=== PATIENT | female | born 1995 | race African-American/Black ===

== ENCOUNTER 2016-05-02 12:54 | Emergency (ER) | payer MEDICAID ==
--- NOTE | 2016-05-02 16:05 | ER Document Report ---
ED General - General Chief Complaint: Cough Stated Complaint: COUGH/CHEST PAIN/HARD TO BREATHE Mode of Arrival: Ambulatory Information source: Patient Notes: 21 y/o F presents to ED c/o sore throat, cough, congestion, and runny nose since yesterday evening. Denies fever, chest pain, sob, hemoptysis, n/v, difficulty breathing or swallowing. LMP onset yesterday. TRAVEL OUTSIDE OF THE [place] IN LAST 30 DAYS: No - HPI Onset: Yesterday Onset/Duration: Persistent Quality of pain: Achy Severity: Mild Associated symptoms: Nonproductive cough, Rhinnorhea, Sore throat Similar symptoms previously: Yes Recently seen / treated by doctor: No - Related Data Allergies/Adverse Reactions: No Known Allergies Allergy (Verified 05/02/16 13:26) Past Medical History - General Information source: Patient - Social History Smoking Status: Current Every Day Smoker Chew tobacco use (# tins/day): No Frequency of alcohol use: None Drug Abuse: None Lives with: Family Family History: Reviewed & Not Pertinent Patient has suicidal ideation: No Patient has homicidal ideation: No - Medical History Medical History: Negative Renal/ Medical History: Denies: Hx Peritoneal Dialysis Surgical Hx: Negative - Immunizations Hx Diphtheria, Pertussis, Tetanus Vaccination: Yes - Pt declines Review of Systems - Review of Systems Constitutional: No symptoms reported EENT: See HPI Cardiovascular: No symptoms reported Respiratory: See HPI Gastrointestinal: No symptoms reported Genitourinary: No symptoms reported Female Genitourinary: No symptoms reported Musculoskeletal: No symptoms reported Skin: No symptoms reported Hematologic/Lymphatic: No symptoms reported Neurological/Psychological: No symptoms reported -: Yes All other systems reviewed and negative Physical Exam - Vital signs Vitals: Temp Pulse Resp BP Pulse Ox 98.3 F 88 16 123/77 98 05/02/16 13:23 05/02/16 13:23 05/02/16 13:23 05/02/16 13:23 05/02/16 13:23 Interpretation: Normal - General General appearance: Appears well, Alert In distress: None - HEENT Head: Normocephalic, Atraumatic Eyes: Normal Pupils: PERRL Ears: Normal External canal: Normal Tympanic membrane: Normal. No: Hemotympanum, Injected, Perforation, Purulent effusion, Serous effusion Sinus: Normal. No: Tenderness Nasal: Clear rhinorrhea. No: Bloody discharge, Epistaxis, Purulent discharge Mouth/Lips: Normal Mucous membranes: Normal, Moist Pharynx: Erythema. No: Normal, Blood in hypopharynx, Exudate, Peritonsillar abscess, Post nasal drainage, Retropharyngeal abscess, Tonsillar hypertrophy, Uvular edema, Potential airway comprom., Other Neck: Normal. No: Anterior cervical chain, Posterior cervical chain, Lymphadenopathy, Meningismus, Subcutaneous emphysema - Respiratory Respiratory status: No respiratory distress. No: Labored, Retractions, Tachypnea Chest status: Nontender Breath sounds: Normal - CTAB, Nonproductive cough Chest palpation: Normal - Cardiovascular Rhythm: Regular Heart sounds: Normal auscultation Murmur: No Pulses: Normal: Radial Normal capillary refill: Yes - Abdominal Inspection: Normal Distension: No distension Bowel sounds: Normal Tenderness: Nontender Organomegaly: No organomegaly - Back Back: Normal, Nontender - Extremities General upper extremity: Normal inspection, Nontender, Normal color, Normal ROM , Normal temperature General lower extremity: Normal inspection, Nontender, Normal color, Normal ROM , Normal temperature, Normal weight bearing - Neurological Neuro grossly intact: Yes Cognition: Normal Orientation: AAOx4 [place] Coma Scale Eye Opening: Spontaneous [place] Coma Scale Verbal: Oriented [place] Coma Scale Motor: Obeys Commands [place] Coma Scale Total: 15 Speech: Normal Motor strength normal: LUE, RUE, LLE, RLE Sensory: Normal - Psychological Associated symptoms: Normal affect, Normal mood - Skin Skin Temperature: Warm Skin Moisture: Dry Skin Color: Normal Course - Re-evaluation Re-evalutation: 05/02/16 16:04 Patient hemodynamically stable, in no distress, afebrile, and appears well- hydrated. Tolerating oral fluids without difficulty or vomiting. Rapid strep negative, throat culture obtained. Influenza A/B screen negative. Patient presentation and physical exam findings suggestive of uncomplicated right clear viral URI at this time. She appears stable for discharge and agrees with home care, follow-up with pcp, and ED return precautions. - Vital Signs Vital signs: Temp Pulse Resp BP Pulse Ox 98.3 F 88 16 123/77 98 05/02/16 13:23 05/02/16 13:23 05/02/16 13:23 05/02/16 13:23 05/02/16 13:23 Discharge - Discharge Clinical Impression: URI (upper respiratory infection) Qualifiers: URI type: unspecified URI Qualified Code(s): J06.9 - Acute upper respiratory infection, unspecified Condition: Stable Disposition: HOME, SELF-CARE Additional Instructions: UPPER RESPIRATORY ILLNESS: You have a viral infection of the respiratory passages -- a "cold." This common infection causes nasal congestion, drainage, and often sore throat and cough. It is highly contagious. The disease usually lasts about 10 to 14 days. There is no "cure" for the viral infection -- it must run its course. If there is a complication, such as bacterial infection in the nose, sinuses, middle ear, or bronchial tubes, antibiotics may be required. The antibiotics won't affect the virus. Drink plenty of fluids. A humidifier may help. An expectorant medication or decongestant may make you more comfortable. Use acetaminophen or ibuprofen for fever or aches. See the doctor if fever persists over two days, if there is any significant worsening of your symptoms, or if you simply fail to improve as expected. DECONGESTANT MEDICATION: A decongestant medicine has been prescribed. Often this medicine is combined in the same tablet with an antihistamine or expectorant. This type of medicine is helpful in treating a bad cold or sinus condition, as well as in treatment of the nasal congestion of hay fever. It is not of much benefit for lung infections. Decongestant medicines are related to stimulants. They can cause an increase in blood pressure and heart rate. Persons with heart disease and high blood pressure should not take decongestants without discussing this with the physician. If you develop palpitations, chest pain, headache, or tremors, stop the medicine and consult your physician. COUGH-SUPPRESSANT & EXPECTORANT MEDICATION: You are to use a cough medication as needed for relief of symptoms. This medicine is a combination of an expectorant (to make the mucous thinner and more easily "coughed up") and a cough suppressant (to reduce the frequency of coughing). The cough-suppressant medicine is related to narcotics. You may experience mild nausea and sleepiness. Some patients who are very sensitive to narcotics may have stomach pain from this medicine. Taking the medicine with food reduces these side effects. Do not drive or work with machinery until you know how this medicine affects you. The expectorant should have no side effects. Iodine-containing expectorants (such as organidin) should not be taken by persons with active thyroid disease unless approved by your doctor. Call the doctor if you develop shortness of breath, hives, rash, itching, lightheadedness, or severe nausea and vomiting. USE OF ACETAMINOPHEN (Tylenol): Acetaminophen may be taken for pain relief or fever control. It's much safer than aspirin, offering a wider range of "safe" dosages. It is safe during . Some brand names are Tylenol, Panadol, Datril, Anacin 3, Tempra, and Liquiprin. Acetaminophen can be repeated every four hours. The following are maximum recommended dosages: >89 pounds or adults 650 mg to 900 mg Acetaminophen can be repeated every four hours. Maximum dose not to exceed 4000 mg a day. Use of Ghqm-Hly-Zbnxeiv Ibuprofen Ibuprofen (Advil, Nuprin, Medipren, Motrin IB) is an excellent, safe drug for fever and pain control. In addition, it has anti- inflammatory effects which may be beneficial, especially in the treatment of injuries. It's best to take ibuprofen with food. Persons with ulcer disease or allergy to aspirin should notify their physician of this before taking ibuprofen. Ibuprofen can be given every four to six hours, for a total of four doses daily. Age Pain or fever dose Antiinflammatory dose 6-8 yr 200 mg (1 tab) 200 mg (1 tab) 9-11 yr 200 mg (1 tab) 200-400 mg (1-2 tab) 11-14 yr 200-400 mg (1-2 tab) 400 mg (2 tab) 15-adult 400 mg (2 tab) 600 mg (3 tab) SMOKING: If you smoke, you should stop smoking. The tar and chemicals in cigarette smoke are harmful. Smoking has been shown to cause: emphysema chronic bronchitis lung cancer mouth and throat cancer stomach and pancreas cancer premature aging defects In addition, smoking increases ear and lung infections in children of smokers. Home self care: -Rest, hydration (6-10 glasses/day) -Steamy shower -Apply warm facial packs -Nasal saline irrigation lavage -Sleep with head elevated -Avoid cigarette smoke -Use of humidifier/vaporizer -Balanced nutrition FOLLOW-UP CARE: Your strep throat and influenza screen were negative today. A throat culture has been obtained. If bacterial growth is noted that requires treatment with antibiotics, you will be contacted within 2 days with instructions on treatment. If you do not receive a call, please call back for results. Drink plenty of fluids, at least 2 liters of water per day. Follow-up with your primary care provider this week. Return to the Emergency Department for any worsening symptoms or concerns. Prescriptions: Phenol/Sodium Phenolate [Chloraseptic Sore Throat [place] 177 ml] 2 sprays MM Q4HP PRN #1 bottle PRN Reason: Guaifenesin/Dm/Pseudoephedrine [Guai 800/Pse 60/Dm 30 Tablet] 1 tab PO Q12HP PRN #6 tab.sr.12h PRN Reason: Forms: Treatment of Relative/Child Referrals: PRASHANT ABARCA MD [Primary Care Provider] - Follow up as needed
[2016-05-02 16:19] VITALS: BP 106/69
== END 2016-05-02 15:30 | disposition home or self-care (01) ==
LOC: ER 12:54
DX: J06.9 Acute upper respiratory infection, unspecified (principal); J02.9 Acute pharyngitis, unspecified; R05 Cough; J34.89 Other specified disorders of nose and nasal sinuses; F17.200 Nicotine dependence, unspecified, uncomplicated
CPT/HCPCS: 87070; 87077; 87804; 87880; 99283

== ENCOUNTER 2016-07-29 23:49 | Emergency (ER) | payer MEDICAID ==
[2016-07-30 01:47] LABS: APPEARANCE,URINE SLIGHTLY-CLOUDY; BILIRUBIN,URINE NEGATIVE (NEGATIVE); GLUCOSE, URINE NEGATIVE (NEGATIVE); KETONES,URINE NEGATIVE (NEGATIVE); LEUKOCYTE ESTERASE,URINE SMALL (NEGATIVE); NITRITE,URINE NEGATIVE (NEGATIVE); PROTEIN,URINE 30 mg/dL (NEGATIVE); UROBILINOGEN,URINE NEGATIVE mg/dL (<2.0)
[2016-07-30] MEDS ORDERED: KETOROLAC TROMETHAMINE 60 MG/2 ML SDV IM ONE (02:22)
[2016-07-30] MEDS ORDERED: CEPHALEXIN 500 MG CAPSULE PO ONE (02:22)
--- NOTE | 2016-07-30 02:27 | ER Document Report ---
ED General - General Chief Complaint: Abdominal Pain Stated Complaint: ABDOMINAL PAIN Notes: Patient is a pleasant 21-year-old female who presents for complaints of lower abdominal pain that radiates some to her back. She points the suprapubic region. No dysuria. No abnormal vaginal discharge. She had a vaginal delivery of an a months ago. Some months ago she was depression. She never followed back up for repeat upper shots. She says that she's had almost daily vaginal spotting since receiving depression. She's not had a normal period as of yet. Her pain started yesterday. No fevers. No vomiting. No diarrhea. Last bowel movement was yesterday and was normal. Patient is sexually monogamous and denies concerns for sexually transmitted diseases. TRAVEL OUTSIDE OF THE [place] IN LAST 30 DAYS: No - Related Data Allergies/Adverse Reactions: No Known Allergies Allergy (Verified 05/02/16 13:26) Past Medical History - Social History Smoking Status: Never Smoker Frequency of alcohol use: None Drug Abuse: None Family History: Reviewed & Not Pertinent Patient has suicidal ideation: No Patient has homicidal ideation: No Renal/ Medical History: Denies: Hx Peritoneal Dialysis - Immunizations Hx Diphtheria, Pertussis, Tetanus Vaccination: Yes - Pt declines Review of Systems - Review of Systems Notes: My Normal Review Basic REVIEW OF SYSTEMS: CONSTITUTIONAL : Denies fever, chills, or sweats. Denies recent illness. RESPIRATORY: Denies cough, cold, or chest congestion. Denies shortness of breath, difficulty breathing, or wheezing. GASTROINTESTINAL: Lower abdominal pain. Denies nausea, vomiting, or diarrhea. Denies constipation. Last BM: Yesterday GENITOURINARY: Denies difficulty urinating, painful urination, burning, frequency, or blood in urine. FEMALE GENITOURINARY: Denies vaginal bleeding, abnormal or irregular periods. LMP: Irregular MUSCULOSKELETAL: Some pain to the back. SKIN: Denies rash or skin lesions.s. NEUROLOGICAL: Denies altered mental status or loss of consciousness. Denies headache. Denies weakness or paralysis or loss of use of either side. Denies problems with gait or speech. Denies sensory or motor loss. ALL OTHER SYSTEMS REVIEWED AND NEGATIVE. Physical Exam - Vital signs Vitals: Temp Pulse Resp BP Pulse Ox 98.8 F 79 18 118/68 99 07/30/16 00:04 07/30/16 00:04 07/30/16 00:04 07/30/16 00:04 07/30/16 00:04 - Notes Notes: General Appearance: Well nourished, alert, cooperative, no acute distress, no obvious discomfort. Vitals: reviewed, See vital signs table. Head: no swelling or tenderness to the head Eyes: PERRL, EOMI, Conjuctiva clear Mouth: No decreasd moisture Lungs: No wheezing, No rales, No rhonci, No accessory muscle use, good air exchange bilaterally. Heart: Normal rate, Regular rythm, No murmur, no rub Abdomen: Normal BS, soft, No rigidity, mild lower abdominal tenderness to palpation that is mainly over the suprapubic region., No guarding, no rebound, no abdominal masses, no organomegaly Extremities: strength 5/5 in all extremities, good pulses in all extremities, no swelling or tenderness in the extremities, no edema. Skin: warm, dry, appropriate color, no rash Neuro: speech clear, oriented x 3, normal affect, responds appropriately to questions. Course - Vital Signs Vital signs: Temp Pulse Resp BP Pulse Ox 98.8 F 79 18 118/68 99 07/30/16 00:04 07/30/16 00:04 07/30/16 00:04 07/30/16 00:04 07/30/16 00:04 - Laboratory Laboratory results interpreted by me: 07/30/16 00:41 Urine Protein 30 H Urine Blood MODERATE H Ur Leukocyte Esterase SMALL H - Transfer of Care Notes: 07/30/16 02:30 Patient's urinalysis that showed large amount of white blood cells. This is concerning for possible UTI. She denies any concerns for sexually transmitted diseases. She's had no abnormal vaginal discharge. Her pain may be related to urinary tract infection. I informed her pain could also be a sign of an upcoming menstrual period being that she is not really had initial period and she received the Depo shot proximal to 7 months ago. I informed her that if her symptoms are not improving in 3 days she's return to ER should reevaluate her. I encourage return to ER immediately she has heavy bleeding, worsening pain, or fevers. Patient agrees with plan will be discharged home. Dictation of this chart was performed using voice recognition software; therefore, there may be some unintended grammatical errors. Discharge - Discharge Clinical Impression: Abdominal pain Qualifiers: Abdominal location: lower abdomen, unspecified Qualified Code(s): R10.30 - Lower abdominal pain, unspecified UTI (urinary tract infection) Qualifiers: Urinary tract infection type: site unspecified Hematuria presence: without hematuria Qualified Code(s): N39.0 - Urinary tract infection, site not specified Condition: Good Disposition: HOME, SELF-CARE Additional Instructions: Your urinalysis shows a large amount of white blood cells. Typically this will indicate a urinary tract infection which may be causing your symptoms. We will place you on antibiotics. Please take Motrin at home for pain. If your symptoms are not improving in 3 days you should return to the ER or follow up with her doctor for reevaluation. Please return to the ER immediately if you have fevers, worsening pain, or feel unwell. Some of your pain could also be an indication of the upcoming heavy menstrual. Being that you've had irregular periods since receiving the tip of shot one month after . If you do get heavy bleeding and feel lightheaded please return to ER immediately. Prescriptions: Cephalexin Monohydrate [Keflex 500 mg Capsule] 500 mg PO BID #14 capsule Forms: Return to Work
[2016-07-30] MEDS ORDERED: KETOROLAC TROMETHAMINE 10 MG TABLET PO ONE (02:47)
[2016-07-30] MEDS ORDERED: KETOROLAC TROMETHAMINE 10 MG TABLET ONE (03:11)
[2016-07-30 03:20] VITALS: BP 115/63
== END 2016-07-30 03:17 | disposition home or self-care (01) ==
LOC: ER 23:49
DX: N39.0 Urinary tract infection, site not specified (principal); R10.30 Lower abdominal pain, unspecified
CPT/HCPCS: 81001; 81025; 99284; J3490

== ENCOUNTER 2016-10-05 10:25 | Emergency (ER) | payer SELFPAY ==
[2016-10-05] MEDS ORDERED: KETOROLAC TROMETHAMINE 60 MG/2 ML SDV IM ONE (12:41)
[2016-10-05 13:03] LABS: APPEARANCE,URINE SLIGHTLY-CLOUDY; BILIRUBIN,URINE NEGATIVE (NEGATIVE); GLUCOSE, URINE NEGATIVE (NEGATIVE); KETONES,URINE NEGATIVE (NEGATIVE); LEUKOCYTE ESTERASE,URINE SMALL (NEGATIVE); NITRITE,URINE NEGATIVE (NEGATIVE); PROTEIN,URINE NEGATIVE (NEGATIVE); URINE SPECIFIC GRAVITY 1.016; UROBILINOGEN,URINE NEGATIVE mg/dL (<2.0)
[2016-10-05] MEDS ORDERED: SULFAMETHOXAZOLE/TRIMETHOPRIM 800-160 MG TABLET PO ONE (13:51)
--- NOTE | 2016-10-05 13:54 | ER Document Report ---
ED General - General Chief Complaint: Low Back Pain Stated Complaint: BACK/ABDOMINAL PAIN Time Seen by Provider: 10/05/16 12:11 TRAVEL OUTSIDE OF THE [place] IN LAST 30 DAYS: No - HPI Patient complains to provider of: Back pain flank pain right Notes: Patient coming in for evaluation of back pain right flank pain started earlier this morning. Patient states last meal was chicken negative; patient states no nausea vomiting or diarrhea. Patient states flank pain on the right side. Patient also states lower abdominal pain. Denies any dysuria. Denies fevers chills nausea vomiting. - Related Data Allergies/Adverse Reactions: No Known Allergies Allergy (Verified 10/05/16 10:58) Past Medical History - Social History Smoking Status: Current Every Day Smoker Chew tobacco use (# tins/day): No Frequency of alcohol use: None Drug Abuse: None Family History: Reviewed & Not Pertinent Patient has suicidal ideation: No Patient has homicidal ideation: No Renal/ Medical History: Denies: Hx Peritoneal Dialysis Past Surgical History: Reports: Hx Gynecologic Surgery - 2 D/C - Immunizations Hx Diphtheria, Pertussis, Tetanus Vaccination: Yes - Pt declines Review of Systems - Review of Systems Constitutional: No symptoms reported EENT: No symptoms reported Cardiovascular: No symptoms reported Respiratory: No symptoms reported Gastrointestinal: Abdominal pain Genitourinary: No symptoms reported Female Genitourinary: No symptoms reported Musculoskeletal: No symptoms reported Skin: No symptoms reported Hematologic/Lymphatic: No symptoms reported Neurological/Psychological: No symptoms reported -: Yes All other systems reviewed and negative Physical Exam - Vital signs Vitals: Temp Pulse Resp BP Pulse Ox 98.7 F 84 20 108/56 L 99 10/05/16 11:01 10/05/16 11:01 10/05/16 11:01 10/05/16 11:01 10/05/16 11:01 Interpretation: Normal - General General appearance: Appears well, Alert - HEENT Head: Normocephalic, Atraumatic Eyes: Normal Pupils: PERRL - Respiratory Respiratory status: No respiratory distress Chest status: Nontender Breath sounds: Normal Chest palpation: Normal - Cardiovascular Rhythm: Regular Heart sounds: Normal auscultation Murmur: No - Abdominal Inspection: Normal Distension: No distension Bowel sounds: Normal Tenderness: Tender - Diffuse nonspecific tenderness with no rebound or guarding Organomegaly: No organomegaly - Back Back: Normal, Nontender - Extremities General upper extremity: Normal inspection, Nontender, Normal color, Normal ROM , Normal temperature General lower extremity: Normal inspection, Nontender, Normal color, Normal ROM , Normal temperature, Normal weight bearing. No: Davon's sign - Neurological Neuro grossly intact: Yes Cognition: Normal Orientation: AAOx4 [place] Coma Scale Eye Opening: Spontaneous [place] Coma Scale Verbal: Oriented [place] Coma Scale Motor: Obeys Commands [place] Coma Scale Total: 15 Speech: Normal Motor strength normal: LUE, RUE, LLE, RLE Sensory: Normal - Psychological Associated symptoms: Normal affect, Normal mood - Skin Skin Temperature: Warm Skin Moisture: Dry Skin Color: Normal Course - Re-evaluation Re-evalutation: 10/06/16 07:14 Patient urinalysis does show signs of possible infection. Due to the patient's plan pain concern about may be early Prilosec. Other patient truly does not present with symptoms such as fever nausea vomiting. Patient will be started on Bactrim discharged home - Vital Signs Vital signs: Temp Pulse Resp BP Pulse Ox 98.3 F 84 16 110/63 100 10/05/16 14:01 10/05/16 14:01 10/05/16 14:01 10/05/16 14:01 10/05/16 14:01 - Laboratory Laboratory results interpreted by me: 10/05/16 12:42 Urine Blood SMALL H Ur Leukocyte Esterase SMALL H Discharge - Discharge Clinical Impression: UTI (urinary tract infection) Qualifiers: Urinary tract infection type: site unspecified Hematuria presence: without hematuria Qualified Code(s): N39.0 - Urinary tract infection, site not specified Condition: Good Disposition: HOME, SELF-CARE Instructions: Urinary Tract Infection ([facility]), Trimethoprim-Sulfa ([facility]) Additional Instructions: Your urinalysis today shows signs of infection. This infection may be going to your kidneys causing pain. Recommend to take the antibiotic as prescribed please take all the antibiotic. He may also take Tylenol and Motrin for your pain. For severe pain may take the Ultram prescribed. Return to ER symptoms worsen Prescriptions: Sulfamethoxazole/Trimethoprim [Bactrim Ds Tablet] 1 each PO BID #14 tablet Tramadol HCl [Ultram 50 mg Tablet] 50 mg PO ASDIR PRN #14 tablet PRN Reason: Referrals: PRASHANT ABARCA MD [Primary Care Provider] - Follow up as needed
[2016-10-05 14:01] VITALS: BP 110/63
== END 2016-10-05 14:01 | disposition home or self-care (01) ==
LOC: ER 10:25
DX: N39.0 Urinary tract infection, site not specified (principal); F17.200 Nicotine dependence, unspecified, uncomplicated
CPT/HCPCS: 99283; 96372; 81025; 81001; J1885

== ENCOUNTER 2017-02-10 20:47 | Emergency (ER) | payer MEDICAID ==
[2017-02-10 21:13] VITALS: BP 116/68
--- NOTE | 2017-02-10 22:12 | ER Document Report ---
ED General - General Chief Complaint: Head Injury without LOC Stated Complaint: HEAD PAIN Time Seen by Provider: 02/10/17 22:03 Mode of Arrival: Ambulatory Information source: Patient Notes: 21-year-old female presents with complaints of head injury. Patient notes that she tripped and fell down 2 steps and stairs and struck her head on the pavement. She denies LOC, denies any neurological deficits. Patient denies any confusion. Significant other in the room notes patient is acting appropriately Patient has no blood in the use denies taking any medications TRAVEL OUTSIDE OF THE [place] IN LAST 30 DAYS: No - HPI Onset: This afternoon Onset/Duration: Sudden Quality of pain: Achy Severity: Mild Pain Level: 1 Associated symptoms: Headache Exacerbated by: Denies Relieved by: Denies Similar symptoms previously: No Recently seen / treated by doctor: No - Related Data Allergies/Adverse Reactions: No Known Allergies Allergy (Verified 10/05/16 10:58) Past Medical History - Social History Smoking Status: Never Smoker Cigarette use (# per day): No Chew tobacco use (# tins/day): No Smoking Education Provided: No Family History: Reviewed & Not Pertinent Patient has suicidal ideation: No Patient has homicidal ideation: No Renal/ Medical History: Denies: Hx Peritoneal Dialysis Past Surgical History: Reports: Hx Gynecologic Surgery - 2 D/C - Immunizations Hx Diphtheria, Pertussis, Tetanus Vaccination: Yes - Pt declines Review of Systems - Review of Systems Notes: REVIEW OF SYSTEMS: CONSTITUTIONAL : Denies fever, chills, or sweats. Denies recent illness. EENT: Denies eye, ear, throat, or mouth pain or symptoms. Denies nasal or sinus congestion or discharge. Denies throat, tongue, or mouth swelling or difficulty swallowing. CARDIOVASCULAR: Denies chest pain. Denies palpitations or racing or irregular heart beat. Denies ankle edema. RESPIRATORY: Denies cough, cold, or chest congestion. Denies shortness of breath, difficulty breathing, or wheezing. GASTROINTESTINAL: Denies abdominal pain or distention. Denies nausea, vomiting , or diarrhea. Denies blood in vomitus, stools, or per rectum. Denies black, tarry stools. Denies constipation. GENITOURINARY: Denies difficulty urinating, painful urination, burning, frequency, blood in urine, or discharge. FEMALE GENITOURINARY: Denies vaginal bleeding, heavy or abnormal periods, irregular periods. Denies vaginal discharge or odor. MUSCULOSKELETAL: Denies back or neck pain or stiffness. Denies joint pain or swelling. SKIN: Denies rash, lesions or sores. HEMATOLOGIC : Denies easy bruising or bleeding. LYMPHATIC: Denies swollen, enlarged glands. NEUROLOGICAL: Admits to headache PSYCHIATRIC: Denies anxiety or stress. Denies depression, suicidal ideation, or homicidal ideation. ALL OTHER SYSTEMS REVIEWED AND NEGATIVE. PHYSICAL EXAMINATION: GENERAL: Well-appearing, well-nourished and in no acute distress. HEAD: Atraumatic, normocephalic. EYES: Pupils equal round and reactive to light, extraocular movements intact, conjunctiva are normal. ENT: Nares patent, oropharynx clear without exudates. Moist mucous membranes. NECK: Normal range of motion, supple without lymphadenopathy LUNGS: Breath sounds clear to auscultation bilaterally and equal. No wheezes rales or rhonchi. HEART: Regular rate and rhythm without murmurs ABDOMEN: Soft, nontender, nondistended abdomen. No guarding, no rebound. No masses appreciated. Female : deferred Musculoskeletal: Normal range of motion, no pitting or edema. No cyanosis. NEUROLOGICAL: Cranial nerves grossly intact. Normal speech, normal gait. Normal sensory, motor exams PSYCH: Normal mood, normal affect. SKIN: Abrasions of the right temporal region no hematoma Dictation was performed using [employer] voice recognition software Physical Exam - Vital signs Vitals: Temp Pulse Resp BP Pulse Ox 98.3 F 75 18 116/68 100 02/10/17 21:08 02/10/17 21:08 02/10/17 21:08 02/10/17 21:08 02/10/17 21:08 Course - Re-evaluation Re-evalutation: 02/10/17 22:18 Neurological examination was performed no acute abnormality was noted, patient was offered a CT of the head and I discussed risks and benefits and she wishes to defer at this time. I believe this is appropriate given that she has no loss consciousness has not been vomiting and is not on any blood thinners. Very strict return precautions have been provided to the patient Patient has no neck pain After performing a Medical Screening Examination, I estimate there is LOW risk for ACUTE GLAUCOMA, TEMPORAL ARTERITIS, MENINGITIS, INCRANIAL HEMORRHAGE, or ISCHEMIC STROKE thus I consider the discharge disposition reasonable. I have reevaluated this patient multiple times and no significant life threatening changes are noted. The patient and I have discussed the diagnosis and risks, and we agree with discharging home with close follow-up with the understanding that symptoms and presentations can change. We also discussed returning to the Emergency Department immediately if new or worsening symptoms occur. We have discussed the symptoms which are most concerning (e.g., changing or worsening symptoms, new numbness or weakness, vomiting, fever) that necessitate immediate return. - Vital Signs Vital signs: Temp Pulse Resp BP Pulse Ox 98.3 F 75 18 116/68 100 02/10/17 21:08 02/10/17 21:08 02/10/17 21:08 02/10/17 21:08 02/10/17 21:08 Discharge - Discharge Clinical Impression: Head injury Qualifiers: Encounter type: initial encounter Qualified Code(s): S09.90XA - Unspecified injury of head, initial encounter Condition: Stable Disposition: HOME, SELF-CARE Instructions: Concussion ([facility]), Contusion ([facility]) Additional Instructions: Follow up with your physician tomorrow for further care or return to the ED IMMEDIATELY if symptoms worsen or new concerns occur. If you cannot afford to follow up with your primary care physician a list of low cost clinics have been provided at the end of your discharge papers as well.
[2017-02-10] MEDS ORDERED: ACETAMINOPHEN 325 MG TABLET PO ONE (22:14)
== END 2017-02-10 22:20 | disposition home or self-care (01) ==
LOC: ER 20:47
DX: S00.81XA Abrasion of other part of head, initial encounter (principal); R51 Headache; W10.9XXA Fall (on) (from) unspecified stairs and steps, initial encounter
CPT/HCPCS: 99283; J3490

== ENCOUNTER → 2017-07-25 | Outpatient (CLI) | payer SELFPAY ==
--- NOTE | 2017-07-25 16:15 | RADIOLOGY REPORT (SQ) ---
EXAM DESCRIPTION: U/S OB 14+ TRNABD 1GES W/O DOP COMPLETED DATE/TIME: 07/25/2017 3:29 pm REASON FOR STUDY: ENCTR FOR SUPERVISION OF OTHER NORMAL , 2ND TRIMESTER (Z34.82) Z34.82 EN COUNTER FOR SUPRVSN OF NORMAL , SECOND TRI COMPARISON: None. TECHNIQUE: Static and Dynamic grayscale imaging performed of gravid uterus using transabdominal appr oach. Additional selected color Doppler and spectral images recorded. All stored on PACS. LIMITATIONS: None. FINDINGS: EGA: 19 weeks 0 days JAZMINE: 12/19/2017 EFW: Not calculated. PERCENTILE: Not applicable. Fetus less than or equal to 20 weeks gestation. CECILIA: 13.4 PLACENTA: Anterior grade 1 PRESENTATION: Cephalic. ANATOMY: HEART RATE: 147 beats per minute. FOUR CHAMBER HEART: Visualized. THREE VESSEL CORD: Yes. CORD INSERTION: Visualized. KIDNEYS AND BLADDER: Visualized. Appear normal. STOMACH: Visualized. Appears normal. SPINE: Normal as visualized. BRAIN AND LATERAL VENTRICLES: Visualized. Appear normal. OTHER: No other significant finding. MATERNAL ADNEXA: Maternal ovaries not visualized. CERVICAL LENGTH: Not measured. OTHER: No other significant finding. IMPRESSION: LIVING INTRAUTERINE . ESTIMATED GESTATIONAL AGE 19 weeks 0 days. NO VISUALIZED ANOMALIES. Trimester of : Second trimester - 13 weeks 1 day to 27 weeks 6 days. TECHNICAL DOCUMENTATION: JOB ID: [id number] [employer]- All Rights Reserved Reading location - IP/workstation name: [email or web address]
== END ==
LOC: RAD 14:15
PROVIDERS: ATTEND Nurse Practitioner Women's Health
DX: Z34.82 Encounter for supervision of other normal pregnancy, second trimester (principal)
CPT/HCPCS: 76805

== ENCOUNTER 2017-12-10 01:08 | Outpatient (CLI) | payer SELFPAY ==
[2017-12-10 01:42] LABS: APPEARANCE,URINE SLIGHTLY-CLOUDY; BILIRUBIN,URINE NEGATIVE (NEGATIVE); COLOR,URINE YELLOW; GLUCOSE, URINE NEGATIVE (NEGATIVE); KETONES,URINE TRACE mg/dL (NEGATIVE); LEUKOCYTE ESTERASE,URINE LARGE (NEGATIVE); NITRITE,URINE NEGATIVE (NEGATIVE); PROTEIN,URINE NEGATIVE (NEGATIVE); URINE SPECIFIC GRAVITY 1.018; UROBILINOGEN,URINE NEGATIVE mg/dL (<2.0)
[2017-12-10 02:02] LABS: URINE AMPHETAMINES SCREEN NEGATIVE; URINE BARBITURATES SCREEN NEGATIVE; URINE BENZODIAZEPINES SCREEN NEGATIVE; URINE COCAINE SCREEN NEGATIVE; URINE PHENCYCLIDINE SCREEN NEGATIVE
[2017-12-10 02:07] LABS: URINE METHADONE SCREEN NEGATIVE
[2017-12-10 02:14] LABS: URINE MARIJUANA (THC) SCREEN UNCONFIRMED POSITIVE
[2017-12-10 03:58] LABS: ABSOLUTE EOSINOPHILS # (AUTO) 0.1 10^3/uL (0.0-0.6); ABSOLUTE LYMPHOCYTES (AUTO) 2.5 10^3/uL (0.5-4.7); ABSOLUTE MONOCYTES (AUTO) 0.7 10^3/uL (0.1-1.4); ABSOLUTE NEUT (AUTO) 5.4 10^3/uL (1.7-8.2); BASOPHILS % (AUTO) 0.4 % (0-2); HEMATOCRIT 29.5 % (36.0-47.0); HEMOGLOBIN 9.6 g/dL (12.0-15.5); LYMPHOCYTES % (AUTO) 28.5 % (13-45); MEAN CORPUSCULAR HEMOGLOBIN 22.8 pg (27.0-33.4); MEAN CORPUSCULAR HGB CONC 32.6 g/dL (32.0-36.0); MEAN CORPUSCULAR VOLUME 70 fl (80-97); MONOCYTES % (AUTO) 8.1 % (3-13); PLATELET COUNT 191 10^3/uL (150-450); RED BLOOD COUNT 4.22 10^6/uL (3.72-5.28); RED CELL DISTRIBUTION WIDTH 18.2 % (11.5-14.0); TOTAL CELLS COUNTED % (AUTO) 100 %; WHITE BLOOD COUNT 8.7 10^3/uL (4.0-10.5)
--- NOTE | 2017-12-10 04:43 | Non Stress Test Report ---
Non Stress Test Datetime Report Generated by CPN: 12/10/2017 04:43 DEMOGRAPHIC EGA NST: 38.5 INDICATION Indication for Study: Other Indication for Study (NST) Other: LC URINE RESULTS Urine Protein, NST: Negative Urine Ketones - NST: Positive Urine Glucose - NST: Negative Urine Blood - NST: Negative MONITORING Monitor Explained: Monitor Explained; Test Explained; Patient Verbalized Understanding Time on Monitor: 12/10/2017 01:36 Time on Monitor: 12/10/2017 01:36 Time off Monitor: 12/10/2017 04:06 NST Duration: 150 NST INTERVENTIONS NST Interventions: PO Hydration Physician Notified NST: Dr. Manning BABY A: [id number] BABY A Movement : Present Contraction Frequency : IREGG FHR Baseline : 125 Accelerations : 15X15 Decelerations : None Variability : Moderate 6-25bpm NST Review: Meets Criteria for Reactive NST NST Review and Verified By : Bárbara Silva RN NST Results: Reactive NST REPORT Report Trigger: Send Report
[2017-12-10 05:02] LABS: RUBELLA INTERPRETATION POSITIVE
[2017-12-10 06:02] LABS: CHLAM PCR DETECTED (NOT DETECT); GON PCR DETECTED (NOT DETECT)
[2017-12-11 07:38] LABS: HEPATITIS C VIRUS AB 0.1 s/co ratio (0.0-0.9)
[2017-12-11 11:27] LABS: HEPATITS B SURFACE ANTIGEN Negative (Negative)
== END 2017-12-10 04:18 | disposition home or self-care (01) ==
LOC: LC 01:08
PROVIDERS: ATTEND Obstetrics & Gynecology Gynecology
PROC: 4A1HXCZ Monitoring of Products of Conception, Cardiac Rate, External Approach (ICD-10-PCS; principal; 2017-12-10)
DX: O47.1 False labor at or after 37 completed weeks of gestation (principal); Z3A.38 38 weeks gestation of pregnancy
CPT/HCPCS: 36415; 59025; 80307; 81005; 85025; 86592; 86701; 86762; 86803; 86804; 86850; 86900; 86901; 87077; 87081; 87340; 87491; 87591

== ENCOUNTER 2017-12-11 22:45 | Inpatient (IN) | payer SELFPAY ==
[2017-12-11] MEDS ORDERED: RINGERS SOLUTION,LACTATED 1,000 ML IV PRN (22:52)
[2017-12-11] MEDS ORDERED: CEFTRIAXONE INJ 1000 MG VIAL ONE (23:00)
[2017-12-11] MEDS ORDERED: AZITHROMYCIN INJ 500 MG VIAL IV ONE (23:01)
[2017-12-11] MEDS ORDERED: PENICILLIN G-K 5 MILLION UNIT VIAL ONE (23:01)
[2017-12-11 23:04] LABS: ABSOLUTE BASOPHILS # (AUTO) 0.1 10^3/uL (0.0-0.2); ABSOLUTE EOSINOPHILS # (AUTO) 0.1 10^3/uL (0.0-0.6); ABSOLUTE LYMPHOCYTES (AUTO) 2.6 10^3/uL (0.5-4.7); ABSOLUTE MONOCYTES (AUTO) 0.8 10^3/uL (0.1-1.4); ABSOLUTE NEUT (AUTO) 6.2 10^3/uL (1.7-8.2); BASOPHILS % (AUTO) 0.5 % (0-2); EOSINOPHILS % (AUTO) 0.5 % (0-6); HEMATOCRIT 30.3 % (36.0-47.0); HEMOGLOBIN 9.8 g/dL (12.0-15.5); LYMPHOCYTES % (AUTO) 27.3 % (13-45); MEAN CORPUSCULAR HEMOGLOBIN 22.6 pg (27.0-33.4); MEAN CORPUSCULAR HGB CONC 32.4 g/dL (32.0-36.0); MEAN CORPUSCULAR VOLUME 70 fl (80-97); MONOCYTES % (AUTO) 7.8 % (3-13); PLATELET COUNT 202 10^3/uL (150-450); RED BLOOD COUNT 4.35 10^6/uL (3.72-5.28); RED CELL DISTRIBUTION WIDTH 17.7 % (11.5-14.0); SEGMENTED NEUTROPHILS % (AUTO) 63.9 % (42-78); TOTAL CELLS COUNTED % (AUTO) 100 %; WHITE BLOOD COUNT 9.7 10^3/uL (4.0-10.5)
[2017-12-11] MEDS ORDERED: LIDOCAINE 1% INJ-PF (10 MG/ML) 30 ML SDV ONE ×2 (23:08→23:22)
[2017-12-11] MEDS ORDERED: LIDOCAINE 1% INJ-PF (10 MG/ML) 30 ML SDV INJ ONE (23:15)
[2017-12-11] MEDS ORDERED: CEFTRIAXONE INJ 250 MG VIAL IM ONE (23:15)
[2017-12-11] MEDS ORDERED: AZITHROMYCIN INJ 500 MG VIAL IV PRN (23:19)
[2017-12-11] MEDS ORDERED: MISOPROSTOL 0.2 MG TABLET ONE (23:21)
[2017-12-11] MEDS ORDERED: OXYTOCIN/NORMAL SALINE 20 UNIT/1,000 ML RTUINJ ONE (23:22)
[2017-12-11] MEDS ORDERED: DEXTROSE 5% IV ONE (23:30)
[2017-12-11] MEDS ORDERED: AZITHROMYCIN IV ONE (23:30)
[2017-12-11] MEDS ORDERED: WATER IV ONE (23:30)
[2017-12-11] MEDS ORDERED: PENICILLIN G POTASSIUM 5,000,000 UNIT in DEXTROSE 5%-WATER 100 ML IV ONE (23:30)
[2017-12-11] MEDS ORDERED: PHENYLEPHRINE HCL INJ/PF 10 MG/1 ML SDV ONE (23:38)
[2017-12-11] MEDS ORDERED: FENTANYL CITRATE INJ/PF 100 MCG/2 ML AMPUL ONE (23:38)
[2017-12-11] MEDS ORDERED: EPHEDRINE SULFATE INJ 50 MG/1 ML AMPULE ONE (23:38)
[2017-12-11] MEDS ORDERED: FENTANYL/BUPIVACAINE/NS/PF 0 MCG/0 ML RTUINJ EPI ONE (23:39)
[2017-12-11 23:58] LABS: APPEARANCE,URINE SLIGHTLY-CLOUDY; BILIRUBIN,URINE NEGATIVE (NEGATIVE); COLOR,URINE YELLOW; GLUCOSE, URINE NEGATIVE (NEGATIVE); KETONES,URINE NEGATIVE (NEGATIVE); LEUKOCYTE ESTERASE,URINE SMALL (NEGATIVE); NITRITE,URINE NEGATIVE (NEGATIVE); PROTEIN,URINE NEGATIVE (NEGATIVE); URINE SPECIFIC GRAVITY 1.014; UROBILINOGEN,URINE NEGATIVE mg/dL (<2.0)
--- NOTE | 2017-12-12 00:04 | Admission Physical ---
Datetime Report Generated by CPN: 12/12/2017 00:04 CURRENT ADMISSION Chief Complaint: Uterine Contractions Indication for Induction: Not Applicable Admit Impression : Term, Intrauterine Admit Plan: Initiate Labor Protocol ALLERGIES Medication Allergies: No Medication Allergies: No Known Allergies (12/11/2017) Latex: No Latex Allergies OBSTETRICAL HISTORY EDC: 12/19/2017 00:00 : 4 Para: 3 Term: 2 : 1 Livin Gestational Diabetes: No Rh Sensitization: No Incompetent Cervix: No GEGE: No Infertility: No ART Treatment: No Uterine Anomaly: No IUGR: No Hx Previous C/S: No Macrosomia: No Hx Loss/Stillborn: No PIH: No Hx : No Placenta Previa/Abruption: No Depression/PP Depression: Yes PTL/PROM: Yes Post Hemorrhage: No Current Procedures: Ultrasound Obstetrical History Comments: G1: 2013 term G2: 2014 34 weeks NICU stay G3: 2015 term G4: current, anemia, limited records, positive for gonorrhea and chlamydia at delivery SEE RECORDS Alcohol: No Marijuana : No Cocaine: No Other Illicit Drugs: No Cigarettes: Current Everyday Smoker. [id number] Cigarette Frequency: < 5 per day Advised to Stop: Yes MEDICAL HISTORY Diabetes: No Blood Transfusion: No Pulmonary Disease (Asthma, TB): No Breast Disease: No Hypertension: No Jewelry Sales Surgery: No Heart Disease: No Hosp/Surgery: No Autoimmune Disorder: No Anesthetic Complications: No Kidney Disease: No Abnormal Pap Smear: No Neuro/Epilepsy: No Psychiatric Disorders: No Other Medical Diseases: No Hepatitis/Liver Disease: No Significant Family History: No Varicosities/Phlebitis: No Trauma/Violence : No Thyroid Dysfunction: No Medical History Comments: PPD after last baby no meds (Annotations: Data stored by [facility] on behalf of user) INFECTIOUS HISTORY Gonorrhea: Yes Genital Herpes: No Chlamydia: Yes Tuberculosis: No Syphilis: No Hepatitis: No HIV/AIDS Exposure: No Rash or Viral Illness: No HPV: No Infectious History Comments: chlamydia and gonorrhea positive 12/11/17 PHYSICAL EXAM General: Normal HEENT: Normal Neurologic: Normal Thyroid: Normal Heart: Normal Lungs: Normal Breast: Deferred Back: Normal Abdomen: Normal Genitourinary Exam: Normal Extremities: Normal DTRs: Normal Pelvic Type: Adequate FETUS A EGA: 39.0 Monitoring: External US PLANS FOR LABOR AND DELIVERY Labor and Delivery: None Pain Management: Epidural Feeding Preference: Breast Benefit of Breast Feed Discussed: Yes Circumcision: No INFORMED CONSENT Signature: with User ID: [email or web address]
[2017-12-12 00:25] LABS: URINE AMPHETAMINES SCREEN NEGATIVE; URINE BENZODIAZEPINES SCREEN NEGATIVE; URINE COCAINE SCREEN NEGATIVE; URINE METHADONE SCREEN NEGATIVE; URINE PHENCYCLIDINE SCREEN NEGATIVE
[2017-12-12 00:33] LABS: URINE BARBITURATES SCREEN NEGATIVE
[2017-12-12 00:42] LABS: URINE MARIJUANA (THC) SCREEN UNCONFIRMED POSITIVE
[2017-12-12] MEDS ORDERED: ACETAMINOPHEN WITH CODEINE #3 TABLET ONE (00:45)
[2017-12-12] MEDS ORDERED: MEASLES,MUMPS&RUBELLA VACC/PF 0.5 ML VIAL SUBCUT PRN ×2 (00:46→09:30)
[2017-12-12] MEDS ORDERED: PROMETHAZINE HCL 25 MG SUPP.RECT PR PRN (00:46)
[2017-12-12] MEDS ORDERED: GLYCERIN/WITCH HAZEL LEAF 1 EACH MED..PAD TP PRN (00:46)
[2017-12-12] MEDS ORDERED: DIPH/PERTUSS(ACELL)/TETANUS VAC/PF 0.5 ML SYR (>=10YO) IM PRN ×2 (00:46→09:30)
[2017-12-12] MEDS ORDERED: BENZOCAINE/MENTHOL AEROSOL SPRAY 56 ML TOP PRN (00:46)
[2017-12-12] MEDS ORDERED: PSEUDOEPHEDRINE HCL 30 MG TABLET PO PRN (00:46)
[2017-12-12] MEDS ORDERED: NA PHOS,M-B/NA PHOS,DI-BA (ADULT) 133 ML ENEMA PR PRN (00:46)
[2017-12-12] MEDS ORDERED: OXYTOCIN/NORMAL SALINE 20 UNIT/1,000 ML RTUINJ IV PRN (00:46)
[2017-12-12] MEDS ORDERED: DIBUCAINE 1% OINTMENT 28 GM TP PRN (00:46)
[2017-12-12] MEDS ORDERED: MAGNESIUM HYDROXIDE SUSP 30 ML UDCUP PO PRN (00:46)
[2017-12-12] MEDS ORDERED: PROMETHAZINE HCL 25 MG TABLET PO PRN (00:46)
[2017-12-12] MEDS ORDERED: ZOLPIDEM TARTRATE 5 MG TABLET PO PRN (00:46)
[2017-12-12] MEDS ORDERED: ACETAMINOPHEN 650 MG SUPP.RECT PR PRN (00:46)
[2017-12-12] MEDS ORDERED: DIPHENHYDRAMINE HCL 25 MG CAPSULE PO PRN (00:46)
[2017-12-12] MEDS ORDERED: PROMETHAZINE HCL INJ 25 MG/1 ML VIAL IV PRN ×2 (00:46→09:30)
--- NOTE | 2017-12-12 00:46 | PDOC DELIVERY SUMMARY ---
Delivery Summary - Maternal Risk Factors: No Care Ruptured Membranes: SROM Fluids: Meconium Stained - Delivery Labor: Precipitous-Less Than 3 Hours Presentation: Vertex Uterine Contraction Monitoring: External Support Person Present: Yes Nuchal Cord: Yes - Medications Type of Anesthesia:: Other
[2017-12-12] MEDS ORDERED: IBUPROFEN 800 MG TABLET ONE (01:45)
--- NOTE | 2017-12-12 02:07 | Warning Signs in Babies ---
VOD Warning Signs Datetime Report Generated by [facility]: 12/12/2017 02:07 VOD#608 -Warning Signs in Babies: Needs to be viewed. (12/10/2017 01:31:Riddhi Hinojosa RN)
--- NOTE | 2017-12-12 03:01 | Delivery Summary ---
Del Sum A-C Datetime Report Generated by CPN: 12/12/2017 03:01 DELIVERY PERSONNEL DELIVERY PERSONNEL: [id number] Delivery Doctor:: Ramon Manning MD Labor and Delivery Nurse:: Riddhi Hinojosa RN Labor and Delivery Nurse:: Geno Neff RN Nursery Nurse:: Whitney Butler RN Nursery Nurse:: Fátima Li RN Additional Personnel: : Elsy Michele RN MATERNAL INFORMATION Delivery Anesthesia: None Medications After Delivery: Pitocin Drip 20 Units/1000ml NSS Maternal Complications: Precipitous Labor (<3hrs); Other Complication Details: limited pnc, gc positive and chlamydia positive at delivery LABOR SUMMARY EDC: 12/19/2017 00:00 No. Babies in Womb: 1 Attempted: No Labor Anesthesia: None LABOR INFORMATION Reason for Induction: Not Applicable Onset of Labor: 12/11/2017 22:15 Complete Dilatation: 12/12/2017 00:13 Oxytocin: N/A Group B Beta Strep: unknown-done 12/10/17 Antibiotics # of Doses: 1 Antibiotics Time of Last Dose: 2324 Name of Antibiotic Given: Penicillin (also received Zithromax and Rocephin) Steroids Given: None Reason Steroids Not Administered: Not Applicable MEMBRANES Membranes Rupture Method: Spontaneous Rupture of Membranes: 12/12/2017 22:30 Length of Rupture (hr): -22.00 Amniotic Fluid Color: Clear Amniotic Fluid Amount: Small Amniotic Fluid Odor: Normal STAGES OF LABOR Stage 1 hr: 1 Stage 1 min: 58 Stage 2 hr: 0 Stage 2 min: 17 Stage 3 hr: 0 Stage 3 min: 3 Total Time in Labor hr: 2 Total Time in Labor min: 18 VAGINAL DELIVERY Episiotomy: None Laceration #1: None Laceration Extension #1: N/A Laceration Repair: Not Applicable Sponge Count Correct: N/A Sharps Count Correct: N/A CSECTION DELIVERY Primary Indication: N/A Secondary Indication: N/A CSection Incidence: N/A Labor: N/A Elective: N/A CSection Incision: N/A BABY A INFORMATION Delivery Date/Time: 12/12/2017 00:30 Method of Delivery: Vaginal Born in Route : No : N/A Forceps: N/A Vacuum Extraction: N/A Shoulder Dystocia : No PRESENTATION/POSITION BABY A Presentation: Cephalic Cephalic Presentation: Vertex Vertex Position: Right Occipital Anterior Breech Presentation: N/A PLACENTA INFORMATION BABY A Placenta Delivery Time : 12/12/2017 00:33 Placenta Method of Delivery: Spontaneous Placenta Status: Delivered SCORES BABY A Heart Rate 1 min: >100 bpm Resp Effort 1 min: Good Cry Reflex Irritability 1 min: Cough or Sneeze or Pulls Away Muscle Tone 1 min: Active Motion Color 1 min: Blue/Pale Resuscitation Effort 1 min: Tactile Stimulation SCORE 1 MIN: 8 Heart Rate 5 min: >100 bpm Resp Effort 5 min: Good Cry Reflex Irritability 5 min: Cough or Sneeze or Pulls Away Muscle Tone 5 min: Active Motion Color 5 min: Body [place], Extremities Blue Resuscitation Effort 5 min: Tactile Stimulation SCORE 5 MIN: 9 INFORMATION BABY A Gestational Age at Delivery: 39.0 Gestational Status: Full Term- 39- 40.6 Weeks Outcome : Liveborn Condition : Stable Sex: Male IDENTIFICATION BABY A Infant Verification Date/Time: 12/12/2017 01:18 ID Band Number: [id number] Mother's Name Verified: Yes RN Verifying : C. Gentilin, RN M. Luke, RN WEIGHT/LENGTH BABY A Birthweight (gm): 2800 Weight (lb): 6 Infant Weight (oz): 3 Length (in): 20.50 Infant Length (cm): 52.07 CORD INFORMATION BABY A No. Cord Vessels: 3 Nuchal Cord : body cord Nuchal Cord- Other: neck Cord Blood Taken: Yes-For Eval (Mom's Blood Type - or O+) Suction: Mouth; Nose ASSESSMENT BABY A Complications: Meconium Physical Findings at Delivery: [place] Spots Respirations: Appears Normal Skin to Skin: Yes Senior Cost Estimator/ALS Called : No Infant Care By: rn luke and rn amelia Transferred To: Remains with Mother BABY B INFORMATION : N/A SIGNATURES Signature: with User ID: [email or web address]
[2017-12-12] MEDS: PENICILLIN G POTASSIUM 2,500,000 UNIT in DEXTROSE 5%-WATER 50 ML IV SCH (03:17)
[2017-12-12] MEDS: ACETAMINOPHEN WITH CODEINE #3 TABLET PO PRN ×2 (04:44→19:24)
[2017-12-12] MEDS: IBUPROFEN 800 MG TABLET PO SCH ×3 (05:07→23:29)
[2017-12-12] MEDS: SENNOSIDES/DOCUSATE 8.6-50 MG 1 EACH TABLET PO SCH (10:10)
[2017-12-12] MEDS: DOCUSATE SODIUM 100 MG CAPSULE PO SCH (10:10)
[2017-12-12] MEDS: FERROUS SULFATE 325 MG TABLET PO SCH (10:10)
[2017-12-12] MEDS: PRENATAL VITAMIN W DHA CAPSULE PO SCH (10:10)
[2017-12-12] MEDS: FAMOTIDINE 20 MG TABLET PO SCH ×2 (10:10→23:29)
[2017-12-13 08:13] LABS: HEMATOCRIT 26.9 % (36.0-47.0); HEMOGLOBIN 8.7 g/dL (12.0-15.5); MEAN CORPUSCULAR HEMOGLOBIN 22.6 pg (27.0-33.4); MEAN CORPUSCULAR HGB CONC 32.2 g/dL (32.0-36.0); MEAN CORPUSCULAR VOLUME 70 fl (80-97); PLATELET COUNT 168 10^3/uL (150-450); RED BLOOD COUNT 3.84 10^6/uL (3.72-5.28); RED CELL DISTRIBUTION WIDTH 17.9 % (11.5-14.0); WHITE BLOOD COUNT 9.4 10^3/uL (4.0-10.5)
[2017-12-13] MEDS: DOCUSATE SODIUM 100 MG CAPSULE PO SCH ×3 (09:44→17:52)
[2017-12-13] MEDS: FERROUS SULFATE 325 MG TABLET PO SCH ×3 (09:44→17:52)
[2017-12-13] MEDS: IBUPROFEN 800 MG TABLET PO SCH ×3 (10:07→21:39)
[2017-12-13] MEDS: ACETAMINOPHEN WITH CODEINE #3 TABLET PO PRN ×2 (10:07→17:52)
[2017-12-13] MEDS: SENNOSIDES/DOCUSATE 8.6-50 MG 1 EACH TABLET PO SCH (10:08)
[2017-12-13] MEDS: PRENATAL VITAMIN W DHA CAPSULE PO SCH (10:08)
[2017-12-13] MEDS: FAMOTIDINE 20 MG TABLET PO SCH ×2 (10:08→21:39)
--- NOTE | 2017-12-13 12:29 | PDOC PROGRESS REPORT ---
Subjective-OB Progress Note for:: 12/13/17 Subjective: 22yo G4 now P4 s/p ppd1. Ambulating, voiding and without difficulty. Reports minimal bleeding today. Bonding well with baby. No concerns Physical Exam (OB) Vital Signs: Temp Pulse Resp BP Pulse Ox 98.0 F 60 15 112/71 97 12/13/17 08:37 12/13/17 08:37 12/13/17 08:37 12/13/17 08:37 12/13/17 08:37 Intake & Output 12/12/17 12/13/17 12/14/17 06:59 06:59 06:59 Intake Total 450 Balance 450 Weight 65.9 kg - General General Appearance: Appears well In distress: None - PIH/Pre-Eclampsia Headache: Absent Epigastric Pain: No Visual Changes: No - Episiotomy/Laceration Site Condition: N/A - Lochia Lochia Amount: Scant < 10 ml Lochia Color: Rubra/Red - Abdomen Description: Soft, Round Hernia Present: No Fundal Description: Firm, Midline Fundal Height: u/u - u/2 - Respiratory Respiratory Status: No respiratory distress - Extremities Upper extremity: Normal inspection Lower extremities: Normal inspection - Neurological Cognition: Normal Orientation: AAOx4 - Psychological Associated symptoms: Normal affect, Normal mood Objective-Diagnostic Laboratory: 12/13/17 07:30 12/13/17 07:30 WBC 9.4 RBC 3.84 Hgb 8.7 L Hct 26.9 L MCV 70 L MCH 22.6 L MCHC 32.2 RDW 17.9 H Plt Count 168 Assessment and Plan(PN) - Assessment and Plan (1) Anemia affecting in third trimester Is this a current diagnosis for this admission?: Yes Plan: Increase dietary iron and FeSO4 BID. (2) Limited care Qualifiers: Trimester: unspecified trimester Qualified Code(s): O09.30 - Supervision of with insufficient care, unspecified trimester Is this a current diagnosis for this admission?: Yes Plan: delivered, discharged landscape architect and planner consult placed (3) Chlamydia infection affecting Qualifiers: Trimester: unspecified trimester Qualified Code(s): O98.819 - Other maternal infectious and parasitic diseases complicating , unspecified trimester; A74.9 - Chlamydial infection, unspecified; A74.9 - Chlamydial infection, unspecified Is this a current diagnosis for this admission?: Yes Plan: treated on admission, will need FAITH at pp visit (4) Gonorrhea affecting Qualifiers: Trimester: unspecified trimester Qualified Code(s): O98.219 - Gonorrhea complicating , unspecified trimester Is this a current diagnosis for this admission?: Yes Plan: treated on admission, will need FAITH at PP visit (5) GBS (group B Streptococcus carrier), +RV culture, currently Is this a current diagnosis for this admission?: Yes Plan: unknown GBS status on admission, treated x1 dose. Will continue to monitor baby (6) Term delivered Is this a current diagnosis for this admission?: Yes (7) THC use in Is this a current diagnosis for this admission?: Yes Plan: landscape architect and planner, cessation encouraged. (8) History of depression Is this a current diagnosis for this admission?: Yes Plan: close follow up in . Continue to monitor for s/s of PPD, warning s/s and how to seek immediate care reviewed - Time Spent with Patient Time with patient: Less than 15 minutes Smoking Education Provided: Over 3 minutes Medications reviewed and adjusted accordingly: Yes - Disposition Anticipated Discharge: Home Within: within 24 hours
[2017-12-14] MEDS: IBUPROFEN 800 MG TABLET PO SCH (05:41)
[2017-12-14] MEDS: PENICILLIN G POTASSIUM 2,500,000 UNIT in DEXTROSE 5%-WATER 50 ML IV SCH (07:58)
[2017-12-14 09:09] VITALS: BP 113/70
[2017-12-14] MEDS: SENNOSIDES/DOCUSATE 8.6-50 MG 1 EACH TABLET PO SCH (09:52)
[2017-12-14] MEDS: FAMOTIDINE 20 MG TABLET PO SCH (09:52)
[2017-12-14] MEDS: PRENATAL VITAMIN W DHA CAPSULE PO SCH (09:52)
[2017-12-14] MEDS: DOCUSATE SODIUM 100 MG CAPSULE PO SCH (09:52)
[2017-12-14] MEDS: FERROUS SULFATE 325 MG TABLET PO SCH (09:52)
--- NOTE | 2017-12-14 10:03 | PDOC DISCHARGE SUMMARY ---
Final Diagnosis Discharge Date: 12/14/17 - Final Diagnosis (1) Anemia affecting in third trimester Is this a current diagnosis for this admission?: Yes (2) Chlamydia infection affecting Is this a current diagnosis for this admission?: Yes (3) Gonorrhea affecting Is this a current diagnosis for this admission?: Yes (4) Limited care Is this a current diagnosis for this admission?: Yes (5) Term delivered Is this a current diagnosis for this admission?: Yes (6) Anemia Is this a current diagnosis for this admission?: Yes (7) History of depression Is this a current diagnosis for this admission?: Yes Discharge Data - Discharge Medication Home Medications: Vit 90/Iron Fum/Folic [ Formula Tablet] 1 tab PO DAILY Ferrous Sulfate [Feosol 325 mg Tablet] 325 mg PO BID #60 tablet 12/04/15 Reason(s) for Admission: Onset of Labor Procedures: NST Intrapartum Procedure(s): Spontaneous Vaginal Delivery - Diagnosis Test Laboratory: Temp Pulse Resp BP Pulse Ox 97.2 F 64 16 113/70 100 12/14/17 09:34 12/14/17 09:34 12/14/17 09:34 12/14/17 07:26 12/14/17 09:34 12/11/17 12/11/17 12/13/17 22:59 23:33 07:30 RBC 4.35 3.84 Hgb 9.8 L 8.7 L Hct 30.3 L 26.9 L Urine Opiates Screen NEGATIVE - Discharge information/Instructions Discharge Activity: Balance Activity w/Rest, Pelvic Rest Discharge Diet: Regular Disposition: HOME, SELF-CARE Follow [facility] with: [facility] in: 3, Weeks
== END 2017-12-14 13:25 | disposition home or self-care (01) | DRG 774 ==
LOC: LC 22:45 → LR 23:06 → 2S 12-12 02:40
PROVIDERS: ADMIT Obstetrics & Gynecology Gynecology; ATTEND Obstetrics & Gynecology Gynecology
PROC: 4A1HXCZ Monitoring of Products of Conception, Cardiac Rate, External Approach (ICD-10-PCS; 2017-12-11)
PROC: 10E0XZZ Delivery of Products of Conception, External Approach (ICD-10-PCS; principal; 2017-12-12)
DX: O77.0 Labor and delivery complicated by meconium in amniotic fluid (principal); O98.82 Other maternal infectious and parasitic diseases complicating childbirth; O98.22 Gonorrhea complicating childbirth; O99.324 Drug use complicating childbirth; O99.02 Anemia complicating childbirth; D64.9 Anemia, unspecified; O99.344 Other mental disorders complicating childbirth; F32.9 Major depressive disorder, single episode, unspecified; A74.9 Chlamydial infection, unspecified; O99.824 Streptococcus B carrier state complicating childbirth; F12.90 Cannabis use, unspecified, uncomplicated; O99.334 Smoking (tobacco) complicating childbirth; F17.210 Nicotine dependence, cigarettes, uncomplicated; O62.3 Precipitate labor; O69.82X0 Labor and delivery complicated by other cord entanglement, without compression, not applicable or unspecified; Z3A.39 39 weeks gestation of pregnancy; Z37.0 Single live birth
CPT/HCPCS: 36415; 80307; 80349; 81005; 85025; 85027; 86592; 86850; 86900; 86901; G0480; J0456; J0696; J2370; J2540; J2590; J3010; J3490; J7060

== ENCOUNTER 2018-05-08 13:21 | Emergency (ER) | payer SELFPAY ==
[2018-05-08] MEDS ORDERED: DEXAMETHASONE SOD PHOS INJ 10 MG/1 ML VIAL IM ONE (15:04)
--- NOTE | 2018-05-08 15:06 | ER Document Report ---
HPI - HPI Time Seen by Provider: 05/08/18 14:26 Pain Level: 5 Notes: Patient is a 23-year-old female who presents with chief complaint of sore throat and fever that started yesterday. She reports that she has white patches on her throat. Patient denies any nausea, vomiting diarrhea. Denies any upper respiratory symptoms to include nasal congestion or cough. - CONSTITUTIONAL Constitutional: DENIES: Fever, Chills - EENT EENT: REPORTS: Sore Throat - 3 days - REPRODUCTIVE Reproductive: DENIES: : Past Medical History - General Information source: Patient - Social History Smoking Status: Current Every Day Smoker Frequency of alcohol use: Occasional Drug Abuse: None Family History: Reviewed & Not Pertinent Patient has suicidal ideation: No Patient has homicidal ideation: No - Medical History Medical History: Negative Renal/ Medical History: Denies: Hx Peritoneal Dialysis Past Surgical History: Reports: Hx Gynecologic Surgery - 2 D/C - Immunizations Hx Diphtheria, Pertussis, Tetanus Vaccination: Yes - Pt declines Vertical Provider Document - CONSTITUTIONAL Notes: PHYSICAL EXAMINATION: GENERAL: Well-appearing, well-nourished and in no acute distress. HEAD: Atraumatic, normocephalic. EYES: Pupils equal round extraocular movements intact, conjunctiva are normal. ENT: Nares patent, erythema with exudates noted to bilateral tonsils, tonsillar swelling noted but tonsils not touching. Uvula midline, no evidence of peritonsillar abscess. NECK: Normal range of motion LUNGS: No respiratory distress Musculoskeletal: Normal range of motion NEUROLOGICAL: Normal speech, normal gait. PSYCH: Normal mood, normal affect. SKIN: Warm, Dry, normal turgor, no rashes or lesions noted. - INFECTION CONTROL TRAVEL OUTSIDE OF THE [place] IN LAST 30 DAYS: No Course - Re-evaluation Re-evalutation: 05/08/18 15:45 Surprisingly patient's rapid strep was negative. We will send for throat culture. Patient given dose of IM Decadron. Told patient we will call her if the culture results are positive. Patient encouraged to take ibuprofen to help with pain and inflammation. Patient given ED return precautions patient verbalizes understanding of same. - Vital Signs Vital signs: Temp Pulse Resp BP Pulse Ox 98.4 F 105 H 14 124/73 98 05/08/18 13:27 05/08/18 13:27 05/08/18 13:27 05/08/18 13:27 05/08/18 13:27 Discharge - Discharge Clinical Impression: Exudative pharyngitis Condition: Stable Disposition: HOME, SELF-CARE Additional Instructions: SORE THROAT: Sore throats may be caused by viruses, bacteria, or fungi. Most are due to a virus, and must get better on their own. Bacterial sore throats, particularly those due to "strep," need treatment with antibiotics. If an antibiotic is prescribed, be sure to take the medication for a full 10 days. Failure to take the antibiotic can result in complications such as rheumatic fever. Sometimes, an injection of antibiotics is given instead of pills or liquid. This single "shot" is equal in effectiveness to the oral medic ation. To relieve symptoms, take acetaminophen for pain. Sip clear liquids frequently, or eat popsicles or ice chips. Anesthetic sprays or lozenges may help. Make sure the air in the room is not too dry. Avoid using decongestants or antihistamines. Call the doctor if there is no improvement in two days, or if you have difficulty breathing, increasing throat pain, high fever, rash, or frequent vomiting. STEROID MEDICATION: You have been given a medicine of the cortisone/steroid class. This medication is used to control inflammation or allergy. It is usually only given for a short period of time, until the acute process subsides. There are usually no side effects from short-term use of cortisone-like medications. Some persons feel an increased sense of well-being and are not sleepy at bedtime. Long-term use of cortisone medications is best avoided, unless required for a severe condition. If your condition does not remit, or relapses after the course of corticosteroid medication, you should consult your physician. FOLLOW-UP CARE: If you have been referred to a physician for follow-up care, call the physicians office for an appointment as you were instructed or within the next two days. If you experience worsening or a significant change in your symptoms, notify the physician immediately or return to the Emergency Department at any time for re-evaluation. The rapid strep today was negative. I will send a culture down, someone will call you in the next 48-72 hours if it is positive. If this is positive someone will call in an antibiotic prescription to pharmacy refusing. You are treated today with a shot of Decadron this will help reduce the inflammation and swelling. Please take ibuprofen 600 mg every 6 hours for the next several days. Return to the emergency department if you experience worsening symptoms such as inability to swallow, fever not relieved by Tylenol or ibuprofen or any other symptom that is concerning to you. Forms: Return to Work Referrals: DEANDRE COTTON MD [ACTIVE STAFF] - Follow up as needed
[2018-05-08 15:33] VITALS: BP 123/76
== END 2018-05-08 15:32 | disposition home or self-care (01) ==
LOC: ER 13:21
DX: J02.9 Acute pharyngitis, unspecified (principal); R50.9 Fever, unspecified; F17.200 Nicotine dependence, unspecified, uncomplicated
CPT/HCPCS: 99283; 96372; 87070; 87880; 87077; J1100

== ENCOUNTER 2018-05-10 14:06 | Emergency (ER) | payer MEDICAID ==
--- NOTE | 2018-05-10 15:11 | ER Document Report ---
HPI - HPI Time Seen by Provider: 05/10/18 15:01 Pain Level: 5 Context: Patient is a 23-year-old female who presents to the emergency department with a chief complaint of a sore throat. She was here in the emergency department 2 days ago for the same issue. Her throat culture resulted group B beta streptococci. She is here to be seen again. She has been taking Motrin for her pain, but has been crushing the pills to get them down. - CONSTITUTIONAL Constitutional: REPORTS: Fever, Chills - EENT EENT: REPORTS: Sore Throat - NEURO Neurology: DENIES: Headache - CARDIOVASCULAR Cardiovascular: DENIES: Chest pain - RESPIRATORY Respiratory: DENIES: Trouble Breathing, Coughing - GASTROINTESTINAL Gastrointestinal: DENIES: Abdominal Pain, Nausea - REPRODUCTIVE Reproductive: DENIES: : Past Medical History - General Information source: Patient - Social History Smoking Status: Never Smoker Frequency of alcohol use: None Drug Abuse: None Family History: Reviewed & Not Pertinent Patient has suicidal ideation: No Patient has homicidal ideation: No Renal/ Medical History: Denies: Hx Peritoneal Dialysis Past Surgical History: Reports: Hx Gynecologic Surgery - 2 D/C - Immunizations Hx Diphtheria, Pertussis, Tetanus Vaccination: Yes - Pt declines Vertical Provider Document - INFECTION CONTROL TRAVEL OUTSIDE OF THE [place] IN LAST 30 DAYS: No - HEENT HEENT: Atraumatic, Normocephalic, Pharyngeal Exudate, Pharyngeal Erythema - NECK Neck: Normal Inspection - RESPIRATORY Respiratory: Breath Sounds Normal, No Respiratory Distress - CARDIOVASCULAR Cardiovascular: Regular Rate - GI/ABDOMEN Gastrointestinal: Abdomen Soft - MUSCULOSKELETAL/EXTREMETIES Musculoskeletal/Extremeties: FROM - DERM Integumentary: Warm, Dry Course - Re-evaluation Re-evalutation: 05/10/18 15:16 Patient states that it is difficult for her to swallow, but she is able to swallow all sips of water while I was at bedside. She also states that she is worried about the cost of the antibiotic. Penicillin VK is on the $4 [facility] list, so she will receive an injection of penicillin G here in the emergency department. Her uvula is midline, therefore I do not suspect she has a peritonsillar abscess. Do not suspect Marco's angina. Verbal discharge instructions were given to the patient. They verbalized understanding. They are stable for discharge. - Vital Signs Vital signs: Temp Pulse Resp BP Pulse Ox 98.4 F 116 H 18 123/72 100 05/10/18 14:14 05/10/18 14:14 05/10/18 14:14 05/10/18 14:14 05/10/18 14:14 Discharge - Discharge Clinical Impression: Strep throat Condition: Stable Disposition: HOME, SELF-CARE Instructions: Strep Throat ([facility]) Additional Instructions: You have been seen today in the emergency department for strep throat. You received your antibiotics from a shot. Please continue to take Motrin to help with your symptoms. Please continue to sip water and stay well-hydrated. If you develop shortness of breath, difficulty breathing, or have symptoms are worrisome to you, please return to the emergency department. Referrals: PRASHANT ABARCA MD [ACTIVE STAFF] - Follow up as needed
[2018-05-10] MEDS ORDERED: PENICILLIN G BENZATHINE 1.2 MILLION UNIT/2 ML DISP.SYRIN IM ONE (15:15)
[2018-05-10] MEDS ORDERED: IBUPROFEN SUSP 100 MG/5 ML ORAL SYRINGE PO ONE (15:44)
[2018-05-10 15:45] VITALS: BP 118/75
== END 2018-05-10 15:59 | disposition home or self-care (01) ==
LOC: ER 14:06
DX: J02.0 Streptococcal pharyngitis (principal); R50.9 Fever, unspecified
CPT/HCPCS: 99282; 96372; J3490; J0561

== ENCOUNTER 2018-08-03 17:41 | Emergency (ER) | payer MEDICAID | END 2018-08-03 18:40 | disposition left against medical advice (07) | LOC: ER 17:41 | DX: Z53.21 Procedure and treatment not carried out due to patient leaving prior to being seen by health care provider (principal); J02.9 Acute pharyngitis, unspecified ==

== ENCOUNTER 2018-08-21 00:37 | Emergency (ER) | payer MEDICAID ==
[2018-08-21 00:46] VITALS: BP 125/89
--- NOTE | 2018-08-21 00:48 | ER Document Report ---
ED General - General Chief Complaint: Sore Throat Stated Complaint: SORE THROAT Time Seen by Provider: 08/21/18 00:40 Mode of Arrival: Ambulatory Information source: Patient TRAVEL OUTSIDE OF THE [place] IN LAST 30 DAYS: No - HPI Patient complains to provider of: Sore throat, swollen glands Onset: Other - Chronic since April Onset/Duration: Persistent Quality of pain: Sharp Severity: Moderate Pain Level: 2 Associated symptoms: Fever Exacerbated by: Denies Relieved by: Denies Similar symptoms previously: No Recently seen / treated by doctor: No Notes: 23-year-old -[place] female coming in today chief complaint sore throat and swollen glands. Says she was seen here back in April. Diagnosed strep throat. Given antibiotics and steroids. States that the tonsils never went down since then. Now they are coming back and she has another fever and sore throat again. - Related Data Allergies/Adverse Reactions: No Known Allergies Allergy (Verified 08/21/18 00:44) Past Medical History - General Information source: Patient - Social History Smoking Status: Never Smoker Family History: Reviewed & Not Pertinent Renal/ Medical History: Denies: Hx Peritoneal Dialysis Past Surgical History: Reports: Hx Gynecologic Surgery - 2 D/C - Immunizations Hx Diphtheria, Pertussis, Tetanus Vaccination: Yes - Pt declines Review of Systems - Review of Systems Notes: Constitutional: Positive for fevers. No chills. EENT: No eye redness. No eye pain. No ear pain. Positive for sore throat. Positive for swollen glands in neck Cardiovascular: No chest pain. No palpitations. Respiratory: No cough. No shortness of breath. No respiratory distress. Gastrointestinal: No abdominal pain. No nausea, vomiting, or diarrhea. Genitourinary: Atraumatic. No lesions. No pain. No discharge. Musculoskeletal: Atraumatic. No swelling. No deformities. Skin: No rash or lesions. Lymphatic: No swollen lymph nodes. Neurologic: No headache. No syncope. Psychiatric: No suicidal or homicidal ideation. Physical Exam - Vital signs Vitals: Temp Pulse Resp BP Pulse Ox 98.1 F 72 18 135/102 H 96 08/21/18 00:39 08/21/18 00:39 08/21/18 00:39 08/21/18 00:39 08/21/18 00:39 - Notes Notes: General: Well-developed, well-nourished. In no acute distress. Non-toxic appearing. Cardiac: Well-perfused. Regular rate and rhythm. No murmurs, rubs, or gallops. Pulmonary: No respiratory distress. No cyanosis. Bilateral lung fiels are clear to auscultation. Abdominal: Non-distended. Non-rigid. Bowels sounds are present in all four quadrants. No guarding or rebound. HEENT: Tonsils are prominent. Exudates present on the right side. Minimally injected. Uvula midline. No drooling. No trismus. No submandibular or subli ngual swelling. No dysphonia dyspnea or dysphagia Neck: Supple. No adenopathy. No meningismus. Dermatologic: Warm with good turgor. No rash. Atraumatic. Chest: Atraumatic. No chest wall tenderness to palpation. Musculoskeletal: Moves all extremities well. No range of motion deficits. no muscular or joint tenderness. No paraspinal muscle tenderness. no midline spinal tenderness or step-off. Genitourinary: Examination deferred Neurologic: No gross neurologic deficits. Psychiatric: Normal mood. Course - Re-evaluation Re-evalutation: 08/21/18 00:47 We will check a CBC and make sure she is not dealing with any lymphoma also check a mono and strep. - Vital Signs Vital signs: Temp Pulse Resp BP Pulse Ox 98.1 F 72 18 125/89 H 96 08/21/18 00:39 08/21/18 00:39 08/21/18 00:39 08/21/18 00:46 08/21/18 00:39 - Laboratory Result Diagrams: 08/21/18 00:48 Laboratory results interpreted by me: 08/21/18 00:48 Hgb 11.8 L MCV 76 L MCH 24.3 L RDW 17.0 H Discharge - Discharge Clinical Impression: Cervical lymphadenopathy Pharyngitis Qualifiers: Pharyngitis/tonsillitis etiology: unspecified etiology Qualified Code(s): J02.9 - Acute pharyngitis, unspecified Condition: Good Disposition: HOME, SELF-CARE Instructions: Sore Throat ([facility]) Prescriptions: Prednisone [Deltasone 20 mg Tablet] 2 tab PO DAILY 5 Days #10 tablet Referrals: SALLY WAN DO [ASSOCIATE] - 08/28/18
[2018-08-21 01:00] LABS: ABSOLUTE BASOPHILS # (AUTO) 0.1 10^3/uL (0.0-0.2); ABSOLUTE EOSINOPHILS # (AUTO) 0.1 10^3/uL (0.0-0.6); ABSOLUTE MONOCYTES (AUTO) 0.5 10^3/uL (0.1-1.4); ABSOLUTE NEUT (AUTO) 3.4 10^3/uL (1.7-8.2); EOSINOPHILS % (AUTO) 1.7 % (0-6); HEMATOCRIT 36.7 % (36.0-47.0); HEMOGLOBIN 11.8 g/dL (12.0-15.5); LYMPHOCYTES % (AUTO) 42.3 % (13-45); MEAN CORPUSCULAR HEMOGLOBIN 24.3 pg (27.0-33.4); MEAN CORPUSCULAR HGB CONC 32.2 g/dL (32.0-36.0); MEAN CORPUSCULAR VOLUME 76 fl (80-97); MONOCYTES % (AUTO) 7.5 % (3-13); PLATELET COUNT 300 10^3/uL (150-450); RED BLOOD COUNT 4.86 10^6/uL (3.72-5.28); SEGMENTED NEUTROPHILS % (AUTO) 47.5 % (42-78); TOTAL CELLS COUNTED % (AUTO) 100 %; WHITE BLOOD COUNT 7.2 10^3/uL (4.0-10.5)
== END 2018-08-21 01:43 | disposition home or self-care (01) ==
LOC: ER 00:37
DX: J02.9 Acute pharyngitis, unspecified (principal); R59.0 Localized enlarged lymph nodes
CPT/HCPCS: 36415; 85025; 86308; 87070; 87077; 87880; 99283

== ENCOUNTER 2018-11-15 11:56 | Emergency (ER) | payer MEDICAID ==
[2018-11-15 12:02] VITALS: BP 123/78
[2018-11-15] MEDS ORDERED: LIDOCAINE 2% VISCOUS SOLN 20 ML UDCUP PO ONE (13:07)
--- NOTE | 2018-11-15 13:11 | ER Document Report ---
HPI - HPI Patient complains to provider of: dental pain Time Seen by Provider: 11/15/18 12:56 Context: 23-year-old female presents to the emergency department with tooth pain of the #31 tooth. She says that it broke 4 days ago and she has had significant pain since. She is able to open her jaw all the way, denies any foreign body, denies fevers or chills, denies any purulent discharge, denies neck stiffness, is unable to bite down on the tooth and has had reduced appetite. She has tried Motrin and Tylenol for the [facility] this morning but they were closed. She denies history of significant dental problems. No other complaints. - CONSTITUTIONAL Constitutional: REPORTS: Fever. DENIES: Chills - EENT EENT: DENIES: Sore Throat, Ear Pain, Eye problems - NEURO Neurology: DENIES: Headache, Weakness, Vision blurred, Dizzinesss / Vertigo - CARDIOVASCULAR Cardiovascular: DENIES: Chest pain - RESPIRATORY Respiratory: DENIES: Trouble Breathing, Coughing - GASTROINTESTINAL Gastrointestinal: DENIES: Abdominal Pain, Black / Bloody Stools - URINARY Urinary: DENIES: Dysuria, Urgency, Frequency - REPRODUCTIVE Reproductive: DENIES: : - MUSCULOSKELETAL Musculoskeletal: DENIES: Extremity pain Past Medical History - Social History Smoking Status: Current Every Day Smoker Chew tobacco use (# tins/day): No Frequency of alcohol use: Occasional Drug Abuse: None Family History: Reviewed & Not Pertinent Patient has suicidal ideation: No Patient has homicidal ideation: No Renal/ Medical History: Denies: Hx Peritoneal Dialysis Past Surgical History: Reports: Hx Gynecologic Surgery - 2 D/C - Immunizations Hx Diphtheria, Pertussis, Tetanus Vaccination: Yes - Pt declines Vertical Provider Document - CONSTITUTIONAL Notes: PHYSICAL EXAMINATION: Reviewed vital signs and charting by RN GENERAL: Alert, interacts well. No acute distress. HEAD: Normocephalic, atraumatic. EYES: Pupils equal and round. Extraocular movements intact. ENT: Oral mucosa moist, tongue midline. Broken #31 tooth with no surrounding gingival inflammation or evidence of an abscess, it does appear that the nerve root is exposed NECK: Full range of motion. Trachea midline. EXTREMITIES: Moves all 4 extremities spontaneously. No edema, No cyanosis. PSYCH: Normal affect, normal mood. SKIN: Warm, dry, normal turgor. No rashes or lesions noted. - INFECTION CONTROL TRAVEL OUTSIDE OF THE [place] IN LAST 30 DAYS: No Course - Re-evaluation Re-evalutation: 11/15/18 13:08 Presentation is most consistent with a broken tooth. Airway is patent. Vitals within normal limits. Patient is able swallow without any difficulty. There is no significant facial swelling. No evidence of Marco angina, apical abscess, or airway obstruction. Patient will not be started on antibiotics as there is no evidence of infection. I've instructed to follow-up with dentistry as earliest ability for definitive management. At this time will discharge with return precautions and follow-up recommendations. Verbal discharge instructions given a the bedside and opportunity for questions given. Medication warnings reviewed. Patient is in agreement with this plan and has verbalized understanding of return precautions and the need for primary care follow-up in the next 24-72 hours. - Vital Signs Vital signs: Temp Pulse Resp BP Pulse Ox 98.1 F 55 L 20 123/78 99 11/15/18 12:00 11/15/18 12:00 11/15/18 12:00 11/15/18 12:00 11/15/18 12:00 Discharge - Discharge Clinical Impression: Pain, dental Condition: Good Disposition: HOME, SELF-CARE Additional Instructions: You have been seen for dental pain. It is very important that you follow-up with a dentist for definitive care. Please return if you develop fever greater than 101, swelling in your face, vomiting, difficulty breathing or swallowing, or any other symptoms that are concerning to you. For pain you should take ibuprofen 600 mg every 6 hours as needed. Prescriptions: Benzonatate [Tessalon Perles 100 mg Capsule] 100 mg PO Q8HP PRN #40 capsule PRN Reason:
== END 2018-11-15 13:22 | disposition home or self-care (01) ==
LOC: ER 11:56
DX: K08.89 Other specified disorders of teeth and supporting structures (principal); R50.9 Fever, unspecified; F17.200 Nicotine dependence, unspecified, uncomplicated
CPT/HCPCS: 99282; J3490

== ENCOUNTER 2019-02-20 | Emergency (ER) | payer MEDICAID ==
[2019-02-20 01:39] LABS: ABSOLUTE BASOPHILS # (AUTO) 0.1 10^3/uL (0.0-0.2); ABSOLUTE EOSINOPHILS # (AUTO) 0.1 10^3/uL (0.0-0.6); ABSOLUTE LYMPHOCYTES (AUTO) 3.4 10^3/uL (0.5-4.7); ABSOLUTE MONOCYTES (AUTO) 0.6 10^3/uL (0.1-1.4); ABSOLUTE NEUT (AUTO) 2.9 10^3/uL (1.7-8.2); BASOPHILS % (AUTO) 0.9 % (0-2); EOSINOPHILS % (AUTO) 1.6 % (0-6); HEMATOCRIT 38.9 % (36.0-47.0); HEMOGLOBIN 12.9 g/dL (12.0-15.5); LYMPHOCYTES % (AUTO) 47.8 % (13-45); MEAN CORPUSCULAR HEMOGLOBIN 25.8 pg (27.0-33.4); MEAN CORPUSCULAR HGB CONC 33.1 g/dL (32.0-36.0); MEAN CORPUSCULAR VOLUME 78 fl (80-97); MONOCYTES % (AUTO) 8.4 % (3-13); PLATELET COUNT 240 10^3/uL (150-450); RED BLOOD COUNT 4.99 10^6/uL (3.72-5.28); RED CELL DISTRIBUTION WIDTH 17.1 % (11.5-14.0); SEGMENTED NEUTROPHILS % (AUTO) 41.3 % (42-78); TOTAL CELLS COUNTED % (AUTO) 100 %; WHITE BLOOD COUNT 7.1 10^3/uL (4.0-10.5)
[2019-02-20 01:50] LABS: APPEARANCE,URINE CLOUDY; BILIRUBIN,URINE NEGATIVE (NEGATIVE); COLOR,URINE RED; GLUCOSE, URINE NEGATIVE (NEGATIVE); KETONES,URINE NEGATIVE (NEGATIVE); LEUKOCYTE ESTERASE,URINE TRACE (NEGATIVE); NITRITE,URINE NEGATIVE (NEGATIVE); PROTEIN,URINE 100 mg/dL (NEGATIVE); URINE SPECIFIC GRAVITY 1.024; UROBILINOGEN,URINE NEGATIVE mg/dL (<2.0)
--- NOTE | 2019-02-20 02:40 | ER Document Report ---
ED General - General Chief Complaint: Vaginal Bleeding Stated Complaint: VAGINAL BLEEDING Time Seen by Provider: 02/20/19 01:15 Primary Care Provider: PRASHANT ABARCA MD [Primary Care Provider] - Follow up as needed TRAVEL OUTSIDE OF THE [place] IN LAST 30 DAYS: No - HPI Notes: Patient is a 23-year-old female, G5, P4, who presents emergency department for evaluation of vaginal bleeding. She states she had a first positive test last week. She believes, based on dates, she is around 5 weeks . She started having vaginal bleeding about 3 days ago. It is intermittent. She states at times she requires a menstrual pad, other times is only with urination. She has had some intermittent cramping but denies any pain at this time. No fevers or chills. No nausea or vomiting. She is unsure of her blood type. - Related Data Allergies/Adverse Reactions: No Known Allergies Allergy (Verified 11/15/18 11:57) Home Medications: None Past Medical History - General Information source: Patient - Social History Smoking Status: Current Every Day Smoker Frequency of alcohol use: Occasional Family History: Reviewed & Not Pertinent Patient has suicidal ideation: No Patient has homicidal ideation: No Renal/ Medical History: Denies: Hx Peritoneal Dialysis Past Surgical History: Reports: Hx Gynecologic Surgery - 2 D/C - Immunizations Hx Diphtheria, Pertussis, Tetanus Vaccination: Yes - Pt declines Review of Systems - Review of Systems Constitutional: No symptoms reported EENT: No symptoms reported Cardiovascular: No symptoms reported Respiratory: No symptoms reported Gastrointestinal: No symptoms reported Genitourinary: No symptoms reported Female Genitourinary: See HPI Musculoskeletal: No symptoms reported Skin: No symptoms reported Neurological/Psychological: No symptoms reported Physical Exam - Vital signs Vitals: Temp Pulse Resp BP Pulse Ox 98.0 F 66 17 111/73 100 02/20/19 00:36 02/20/19 00:36 02/20/19 00:36 02/20/19 00:36 02/20/19 00:36 - Notes Notes: Vital signs reviewed, please refer to chart. Head is normocephalic, atraumatic. Pupils equal round, reactive to light. Neck is supple without meningismus. Heart is regular rate and rhythm. Lungs are clear to auscultation bilaterally. Abdomen is soft, nontender, normoactive bowel sounds throughout. Extremities without cyanosis, clubbing. Posterior calves are nontender. Peripheral pulses are equal. Skin is warm and dry. Patient is awake, alert, neurological exam is nonfocal. Course - Re-evaluation Re-evalutation: 02/20/19 03:29 Patient presents emergency department for evaluation of vaginal bleeding during . She had blood work obtained. Laboratory investigations revealed that the patient is Rh+, no RhoGam indicated. She does have a subchorionic hematoma noted on ultrasound, as well as a single intrauterine with normal heart rate. Findings were explained to the patient. She is to follow-up with OB, return to the ED with worsening. - Vital Signs Vital signs: Temp Pulse Resp BP Pulse Ox 98.0 F 66 17 111/73 100 02/20/19 00:36 02/20/19 00:36 02/20/19 00:36 02/20/19 00:36 02/20/19 00:36 - Laboratory Result Diagrams: 02/20/19 01:23 Laboratory results interpreted by me: 02/20/19 02/20/19 02/20/19 01:11 01:23 01:23 MCV 78 L MCH 25.8 L RDW 17.1 H Lymph % (Auto) 47.8 H Seg Neutrophils % 41.3 L Beta HCG, Quant 99997.00 H Urine Protein 100 H Urine Blood LARGE H Ur Leukocyte Esterase TRACE H - Diagnostic Test Radiology reviewed: Reports reviewed Radiology results interpreted by me: 02/20/19 03:29 Obstetrics Ultrasound 02/20/19 01:19 IMPRESSION: Single live intrauterine . copyright 2010 [employer]- All Rights Reserved Discharge - Discharge Clinical Impression: First trimester bleeding, Subchorionic hematoma in first trimester Condition: Stable Disposition: HOME, SELF-CARE Instructions: Bleeding During Early ([facility]) Additional Instructions: Pelvic rest as discussed. Follow-up with OB this week. Return to the emergency department with worsening or new concerning symptoms of any sort. Referrals: PRASHANT ABARCA MD [Primary Care Provider] - Follow up as needed
--- NOTE | 2019-02-20 03:17 | RADIOLOGY REPORT (SQ) ---
EXAM DESCRIPTION: US TRANSVAGINAL COMPLETED DATE/TME: 02/20/2019 01:19 CLINICAL HISTORY: 23 years, Female, and bleeding COMPARISON: None. TECHNIQUE: Transvaginal pelvic ultrasound LIMITATIONS: None. FINDINGS: Uterus: Anteverted. Measures 10.6 x 6.4 x 5.4 cm. Endometrium: Intrauterine gestational sac. Gestational sac: Shape is oval. Fetus: CRL measures 1 cm. Heart rate: 145 bpm. Other: Subchorionic hematoma: Measures 1.1 x 0.4 x 0.7 cm Amniotic fluid: Subjectively within normal limits. Maternal ovaries: Right: Measures 2.9 x 2.3 x 2.0 cm. Normal doppler flow. Left: Measures 2.2 x 1.6 x 1.2 cm. Normal doppler flow. Clinical: LMP: 01/05/2019. MA: Six weeks four days. JAZMINE: 10/12/2019. Ultrasound: MA: 7 weeks zero days. JAZMINE: 10/09/2019. IMPRESSION: Single live intrauterine . copyright 2010 [employer]- All Rights Reserved
[2019-02-20 03:41] VITALS: BP 116/75
== END 2019-02-20 03:40 | disposition home or self-care (01) ==
LOC: ER
DX: O20.8 Other hemorrhage in early pregnancy (principal); O26.891 Other specified pregnancy related conditions, first trimester; R10.9 Unspecified abdominal pain; Z3A.00 Weeks of gestation of pregnancy not specified; F17.200 Nicotine dependence, unspecified, uncomplicated
CPT/HCPCS: 36415; 76817; 81001; 84702; 85025; 86900; 86901; 99284

== ENCOUNTER → 2019-06-13 | Outpatient (CLI) | payer SELFPAY ==
--- NOTE | 2019-06-13 15:25 | RADIOLOGY REPORT (SQ) ---
EXAM DESCRIPTION: U/S OB 14+ TRNABD 1GES W/O DOP COMPLETED DATE/TIME: 06/13/2019 2:58 pm REASON FOR STUDY: Z34.82 ENCOUNTER FOR SUPRVSN OF NORMAL , SECOND TRIMESTER Z34.82 ENCOUNT ER FOR SUPRVSN OF NORMAL , SECOND TRI COMPARISON: 02/20/2019 TECHNIQUE: Static and Dynamic grayscale imaging performed of gravid uterus using transabdominal appr oach. Additional selected color Doppler and spectral images recorded. All stored on PACS. LIMITATIONS: None. FINDINGS: FETUSES SEEN:1 EGA: 22 weeks 6 days Calculated using BPD,FL,HC,AC documented on images. No discrepancy with clinica l dates. JAZMINE: 10/11/2019 EFW: 556 grams PERCENTILE: 38% CECILIA: 14.7 cm PLACENTA: Anterior PRESENTATION: Breech ANATOMY: HEART RATE: 139 beats per minute. FOUR CHAMBER HEART: Visualized. THREE VESSEL CORD: Yes. CORD INSERTION: Visualized. KIDNEYS AND BLADDER: Visualized. Appear normal. STOMACH: Visualized. Appears normal. SPINE: Suboptimally visualized due to positioning. BRAIN AND LATERAL VENTRICLES: Visualized. Appear normal. OTHER: No other significant finding. MATERNAL ADNEXA: Maternal ovaries visualized sonographically, no images were acquired. CERVICAL LENGTH: 3.4 cm. Closed. OTHER: No other significant finding. IMPRESSION: LIVING INTRAUTERINE . ESTIMATED GESTATIONAL AGE: 22 weeks 6 days NO VISUALIZED ANOMALIES. Trimester of : Second trimester - 13 weeks 1 day to 27 weeks 6 days. TECHNICAL DOCUMENTATION: JOB ID: [id number] 2010 [employer]- All Rights Reserved Reading location - IP/workstation name: [email or web address]
== END ==
LOC: RAD 13:56
PROVIDERS: ATTEND Midwife
DX: Z34.82 Encounter for supervision of other normal pregnancy, second trimester (principal); Z3A.22 22 weeks gestation of pregnancy
CPT/HCPCS: 76805

== ENCOUNTER 2019-09-15 18:29 | Outpatient (CLI) | payer MEDICAID ==
[2019-09-15] MEDS ORDERED: PENICILLIN G-K 5 MILLION UNIT VIAL ONE (18:40)
[2019-09-15] MEDS ORDERED: NIFEDIPINE 30 MG TAB.ER.24 PO ONE (18:40)
[2019-09-15 19:18] LABS: APPEARANCE,URINE CLEAR; BILIRUBIN,URINE NEGATIVE (NEGATIVE); COLOR,URINE YELLOW; GLUCOSE, URINE NEGATIVE (NEGATIVE); KETONES,URINE NEGATIVE (NEGATIVE); LEUKOCYTE ESTERASE,URINE MODERATE (NEGATIVE); NITRITE,URINE NEGATIVE (NEGATIVE); PROTEIN,URINE NEGATIVE (NEGATIVE); URINE SPECIFIC GRAVITY 1.012; UROBILINOGEN,URINE NEGATIVE mg/dL (<2.0)
[2019-09-15 19:30] LABS: URINE AMPHETAMINES SCREEN NEGATIVE; URINE BARBITURATES SCREEN NEGATIVE; URINE BENZODIAZEPINES SCREEN NEGATIVE; URINE COCAINE SCREEN NEGATIVE; URINE METHADONE SCREEN NEGATIVE; URINE PHENCYCLIDINE SCREEN NEGATIVE
[2019-09-15 19:34] LABS: URINE MARIJUANA (THC) SCREEN UNCONFIRMED POSITIVE
--- NOTE | 2019-09-15 20:36 | Non Stress Test Report ---
Non Stress Test Datetime Report Generated by CPN: 09/15/2019 20:36 DEMOGRAPHIC Test Number: 1 EGA NST: 37.2 INDICATION Indication for Study (NST) Other: labor check MONITORING Monitor Explained: Monitor Explained; Test Explained; Patient Verbalized Understanding Time on Monitor: 09/15/2019 18:58 Time off Monitor: 09/15/2019 20:23 NST Duration: 85 NST INTERVENTIONS NST Interventions: None Physician Notified NST: Dr Snowden BABY A: [id number] BABY A Movement : Present Contraction Frequency : irreg FHR Baseline : 135 Accelerations : 15X15 Decelerations : None Variability : Moderate 6-25bpm NST Review: Meets Criteria for Reactive NST NST Results: Reactive NST REPORT Report Trigger: Send Report
== END 2019-09-15 20:28 | disposition home or self-care (01) ==
LOC: LC 18:29
PROVIDERS: ATTEND Obstetrics & Gynecology
DX: O47.1 False labor at or after 37 completed weeks of gestation (principal); Z3A.37 37 weeks gestation of pregnancy
CPT/HCPCS: 59025; 81005; 80307; G0480 ×2; 80349; J2540

== ENCOUNTER 2019-09-26 23:52 | Inpatient (IN) | payer MEDICAID ==
[2019-09-26] MEDS ORDERED: RINGERS SOLUTION,LACTATED 1,000 ML IV PRN (23:58)
[2019-09-26] MEDS ORDERED: RINGERS SOLUTION,LACTATED 1,000 ML IV ONE (23:58)
[2019-09-27 00:18] LABS: APPEARANCE,URINE CLEAR; BILIRUBIN,URINE NEGATIVE (NEGATIVE); COLOR,URINE YELLOW; GLUCOSE, URINE NEGATIVE (NEGATIVE); KETONES,URINE NEGATIVE (NEGATIVE); LEUKOCYTE ESTERASE,URINE MODERATE (NEGATIVE); NITRITE,URINE NEGATIVE (NEGATIVE); PROTEIN,URINE NEGATIVE (NEGATIVE); URINE SPECIFIC GRAVITY 1.014; UROBILINOGEN,URINE NEGATIVE mg/dL (<2.0)
--- NOTE | 2019-09-27 00:21 | Admission Physical ---
Datetime Report Generated by CPN: 09/27/2019 00:21 CURRENT ADMISSION Chief Complaint: Uterine Contractions; Suspected Ruptured Membranes Chief Complaint Other: Presented to unit after SROM at approximately 2330, clear large amount. Ctx irregualr. Good FM Admit Impression : Term, Intrauterine ; Active Labor; Ruptured Membranes Admit Plan: Admit to Unit; Initiate Labor Protocol ALLERGIES Medication Allergies: No Medication Allergies: No Known Allergies (11/15/2018) Latex: No Latex Allergies Food Allergies: denies Environmental Allergies: denies OBSTETRICAL HISTORY EDC: 10/04/2019 00:00 : 5 Para: 4 Term: 4 : 0 SAB: 0 IAB: 0 Ectopic: 0 Livin Cesareans: 0 VBACs: 0 Multiple Births: 0 Gestational Diabetes: No Rh Sensitization: No Incompetent Cervix: No GEGE: No Infertility: No ART Treatment: No Uterine Anomaly: No IUGR: No Hx Previous C/S: No Macrosomia: No Hx Loss/Stillborn: No PIH: No Hx : No Placenta Previa/Abruption: No Depression/PP Depression: Yes PTL/PROM: No Post Hemorrhage: No Current Procedures: Ultrasound; NST Obstetrical History Comments: g1-2013, 39, , 4-5 hour in labor, male, 5lb 5oz, small for dates g2-2014, , male, 5lb 14oz g3-2015, 37+6, , 6 hours labor, 5lb 12oz, female, extra digits and something wrong with placenta g4-2017, 39 weeks, , 5lb 11oz, male g5-current , anemia SEE RECORDS Alcohol: No Marijuana : Yes Marijuana Comments: patient denied, positive for marijuana on drug screen Cocaine: No Other Illicit Drugs: No Cigarettes: Never Smoker. [id number] MEDICAL HISTORY Diabetes: No Blood Transfusion: No Pulmonary Disease (Asthma, TB): No Breast Disease: No Hypertension: No Back Tender [place] Surgery: No Heart Disease: No Hosp/Surgery: Yes Autoimmune Disorder: No Anesthetic Complications: No Kidney Disease: No Abnormal Pap Smear: No Neuro/Epilepsy: No Psychiatric Disorders: No Other Medical Diseases: No Hepatitis/Liver Disease: No Significant Family History: No Varicosities/Phlebitis: No Trauma/Violence : No Thyroid Dysfunction: No Medical History Comments: childbirth x 4, anemia, depression listed in medical history but patient denied, patient is a twin, patient born with extra finger, positive marijuana on drug screen but patient denies INFECTIOUS HISTORY Gonorrhea: Yes Genital Herpes: No Chlamydia: Yes Tuberculosis: No Syphilis: No Hepatitis: No HIV/AIDS Exposure: No Rash or Viral Illness: No HPV: No Infectious History Comments: chlamydia 05/2019 and 07/2019, gonorrhea 2014, _ 05/2019 PHYSICAL EXAM General: Normal HEENT: Normal Neurologic: Normal Thyroid: Normal Heart: Normal Lungs: Normal Breast: Normal Back: Normal Abdomen: Normal Genitourinary Exam: Normal Extremities: Normal DTRs: Normal Pelvic Type: Adequate Vital Signs: Reviewed; Within Normal Limits VAGINAL EXAM Dilatation: 2 Effacement: 50 Station: -2 MEMBRANES Pooling: Positive Membranes: Ruptured Amniotic Fluid Color: Clear FETUS A EGA: 39.0 Monitoring: External US FHR- Baseline: 130 Variability: Moderate 6-25bpm Accelerations: 15X15 Decelerations: None FHR Category: Category I Presentation: Vertex Admit Comment: at 39.0 wks EGA in active labor after SROM at 2300 -Admit to LDR _NPO and IVFs: LR one liter now, and then 125 cc/hr -GBS negative -Desires epidural -History 4 prior SVDs -Anticipate PLANS FOR LABOR AND DELIVERY Labor and Delivery: None Pain Management: Epidural Feeding Preference: Formula Benefit of Breast Feed Discussed: Yes Circumcision: N/A INFORMED CONSENT Informed Consent Obtained: Vaginal Delivery; Induction of Labor; Vacuum/Forceps Assist; Risks, Benefits and Alternatives Discussed Signature: with User ID: [email or web address] : with User ID: [email or web address]
[2019-09-27] MEDS ORDERED: MISOPROSTOL 0.2 MG TABLET ONE (00:29)
[2019-09-27] MEDS ORDERED: LIDOCAINE 1% INJ-PF (10 MG/ML) 30 ML SDV ONE (00:29)
[2019-09-27] MEDS ORDERED: OXYTOCIN/0.9 % SODIUM CHLORIDE 30 UNIT/500 ML RTUINJ ONE (00:29)
[2019-09-27] MEDS ORDERED: OXYTOCIN 10 UNIT/ML VIAL ONE (00:29)
[2019-09-27] MEDS ORDERED: FENTANYL/BUPIVACAINE/NS/PF 300 MCG/150 ML RTUINJ EPI ONE (00:35)
[2019-09-27] MEDS ORDERED: EPHEDRINE SULFATE INJ 50 MG/1 ML AMPULE ONE (00:35)
[2019-09-27] MEDS ORDERED: BUPIVACAINE HCL 0.25 % INJ/PF (2.5 MG/1 ML) 30 ML VIAL ONE (00:35)
[2019-09-27 00:41] LABS: URINE AMPHETAMINES SCREEN NEGATIVE; URINE BARBITURATES SCREEN NEGATIVE; URINE BENZODIAZEPINES SCREEN NEGATIVE; URINE COCAINE SCREEN NEGATIVE; URINE METHADONE SCREEN NEGATIVE; URINE PHENCYCLIDINE SCREEN NEGATIVE
[2019-09-27 00:42] LABS: ABSOLUTE EOSINOPHILS # (AUTO) 0.1 10^3/uL (0.0-0.6); ABSOLUTE LYMPHOCYTES (AUTO) 2.8 10^3/uL (0.5-4.7); ABSOLUTE NEUT (AUTO) 5.8 10^3/uL (1.7-8.2); BASOPHILS % (AUTO) 0.3 % (0-2); EOSINOPHILS % (AUTO) 0.9 % (0-6); HEMOGLOBIN 10.3 g/dL (12.0-15.5); LYMPHOCYTES % (AUTO) 28.9 % (13-45); MEAN CORPUSCULAR HEMOGLOBIN 26.4 pg (27.0-33.4); MEAN CORPUSCULAR HGB CONC 33.3 g/dL (32.0-36.0); MEAN CORPUSCULAR VOLUME 79 fl (80-97); MONOCYTES % (AUTO) 10.3 % (3-13); PLATELET COUNT 199 10^3/uL (150-450); RED BLOOD COUNT 3.91 10^6/uL (3.72-5.28); RED CELL DISTRIBUTION WIDTH 16.4 % (11.5-14.0); SEGMENTED NEUTROPHILS % (AUTO) 59.6 % (42-78); TOTAL CELLS COUNTED % (AUTO) 100 %; WHITE BLOOD COUNT 9.7 10^3/uL (4.0-10.5)
[2019-09-27 00:43] LABS: URINE MARIJUANA (THC) SCREEN UNCONFIRMED POSITIVE
[2019-09-27] MEDS ORDERED: OXYTOCIN/0.9 % SODIUM CHLORIDE 30 UNIT/500 ML RTUINJ IV PRN ×2 (01:49→05:45)
[2019-09-27] MEDS ORDERED: PSEUDOEPHEDRINE HCL 30 MG TABLET PO PRN (05:45)
[2019-09-27] MEDS ORDERED: BENZOCAINE/MENTHOL AEROSOL SPRAY 56 ML TOP PRN (05:45)
[2019-09-27] MEDS ORDERED: DIPHENHYDRAMINE HCL 25 MG CAPSULE PO PRN (05:45)
[2019-09-27] MEDS ORDERED: DIPH/PERTUSS(ACELL)/TETANUS VAC/PF 0.5 ML SYR (>=10YO) IM PRN ×2 (05:45→07:30)
[2019-09-27] MEDS ORDERED: NA PHOS,M-B/NA PHOS,DI-BA (ADULT) 133 ML ENEMA PR PRN (05:45)
[2019-09-27] MEDS ORDERED: PROMETHAZINE HCL INJ 25 MG/1 ML VIAL IV PRN ×2 (05:45→07:30)
[2019-09-27] MEDS ORDERED: ACETAMINOPHEN WITH CODEINE #3 TABLET PO PRN ×2 (05:45)
[2019-09-27] MEDS ORDERED: MEASLES,MUMPS&RUBELLA VACC/PF 0.5 ML VIAL SUBCUT PRN ×2 (05:45→07:30)
[2019-09-27] MEDS ORDERED: PROMETHAZINE HCL 25 MG TABLET PO PRN (05:45)
[2019-09-27] MEDS ORDERED: MAGNESIUM HYDROXIDE SUSP 30 ML UDCUP PO PRN (05:45)
[2019-09-27] MEDS ORDERED: DIBUCAINE 1% OINTMENT 28 GM TP PRN (05:45)
[2019-09-27] MEDS ORDERED: ZOLPIDEM TARTRATE 5 MG TABLET PO PRN (05:45)
[2019-09-27] MEDS ORDERED: PROMETHAZINE HCL 25 MG SUPP.RECT PR PRN (05:45)
[2019-09-27] MEDS ORDERED: GLYCERIN/WITCH HAZEL LEAF 1 EACH MED..WIPE TP PRN (05:45)
[2019-09-27] MEDS ORDERED: ACETAMINOPHEN 650 MG SUPP.RECT PR PRN (05:45)
[2019-09-27] MEDS ORDERED: IBUPROFEN 800 MG TABLET ONE (05:47)
--- NOTE | 2019-09-27 06:33 | Delivery Summary ---
Del Sum A-C Datetime Report Generated by CPN: 09/27/2019 06:33 DELIVERY PERSONNEL DELIVERY PERSONNEL: [id number] Delivery Doctor:: Elsy Snowden MD Labor and Delivery Nurse:: Leena Tuttle RN MATERNAL INFORMATION Delivery Anesthesia: Epidural Medications After Delivery: Pitocin 30 Units in 500ml NS/D5W Maternal Complications: None Provider Comments: Called to patients room and found to be completely dilated and +2 station. Pushed through one contraction and viable female delivered over intact perineum. Cord clamping delayed for 30 seconds as was vigorous. placed skin to skin. Uterus firm. Both Mother and stable LABOR SUMMARY EDC: 10/04/2019 00:00 No. Babies in Womb: 1 Attempted: No Labor Anesthesia: Epidural LABOR INFORMATION Reason for Induction: Premature Rupture of Membranes Onset of Labor: 09/27/2019 02:56 Complete Dilatation: 09/27/2019 05:27 Oxytocin: Induction Group B Beta Strep: Negative Antibiotics # of Doses: 0 Antibiotics Time of Last Dose: 0 Name of Antibiotic Given: 0 Steroids Given: None Reason Steroids Not Administered: Not Applicable MEMBRANES Membranes Rupture Method: Spontaneous Rupture of Membranes: 09/26/2019 23:00 Length of Rupture (hr): 6.60 Amniotic Fluid Color: Clear Amniotic Fluid Amount: Moderate Amniotic Fluid Odor: Normal STAGES OF LABOR Stage 1 hr: 2 Stage 1 min: 31 Stage 2 hr: 0 Stage 2 min: 9 Stage 3 hr: 0 Stage 3 min: 5 Total Time in Labor hr: 2 Total Time in Labor min: 45 VAGINAL DELIVERY Episiotomy: None Laceration #1: None Laceration Extension #1: N/A Laceration Repair: Not Applicable Sponge Count Correct: Yes Sharps Count Correct: Yes CSECTION DELIVERY Primary Indication: N/A Secondary Indication: N/A CSection Incidence: N/A Labor: N/A Elective: N/A CSection Incision: N/A BABY A INFORMATION Delivery Date/Time: 09/27/2019 05:36 Method of Delivery: Vaginal Nurse Controlled Delivery: No Born in Route : No : N/A Forceps: N/A Vacuum Extraction: N/A Shoulder Dystocia : No PRESENTATION/POSITION BABY A Presentation: Cephalic Cephalic Presentation: N/A Vertex Position: Right Occipital Anterior Breech Presentation: N/A PLACENTA INFORMATION BABY A Placenta Delivery Time : 09/27/2019 05:41 Placenta Method of Delivery: Spontaneous Placenta Status: Delivered SCORES BABY A Heart Rate 1 min: >100 bpm Resp Effort 1 min: Good Cry Reflex Irritability 1 min: Cough or Sneeze or Pulls Away Muscle Tone 1 min: Active Motion Color 1 min: Blue/Pale SCORE 1 MIN: 8 Heart Rate 5 min: >100 bpm Resp Effort 5 min: Good Cry Reflex Irritability 5 min: Cough or Sneeze or Pulls Away Muscle Tone 5 min: Active Motion Color 5 min: Body [place], Extremities Blue SCORE 5 MIN: 9 INFORMATION BABY A Gestational Age at Delivery: 39.0 Gestational Status: Full Term- 39- 40.6 Weeks Infant Outcome : Liveborn Infant Condition : Stable Infant Sex: Female IDENTIFICATION BABY A Verification Date/Time: 09/27/2019 06:03 ID Band Number: [id number] Mother's Name Verified: Yes Infant RN Verifying : Lorri Perez, RN/ E [place], RN WEIGHT/LENGTH BABY A Infant Birthweight (gm): 3093 Weight (lb): 6 Infant Weight (oz): 13 Length (in): 19.00 Length (cm): 48.26 CORD INFORMATION BABY A No. Cord Vessels: 3 Nuchal Cord : N/A Nuchal Cord- Other: compound hand Cord Blood Taken: Yes-For Eval (Mom's Blood Type - or O+) Suction: Mouth ASSESSMENT BABY A Infant Complications: None Physical Findings at Delivery: Within Normal Limits Skin to Skin: Yes Skin to Skin Time (min): 60 Transferred To: Remains with Mother BABY B INFORMATION : N/A SIGNATURES Signature: with User ID: [email or web address] : with User ID: [email or web address]
[2019-09-27] MEDS: FERROUS SULFATE 325 MG TABLET PO SCH ×2 (11:27→17:27)
[2019-09-27] MEDS: FAMOTIDINE 20 MG TABLET PO SCH ×2 (11:27→21:43)
[2019-09-27] MEDS: PRENATAL VITAMIN W DHA CAPSULE PO SCH (11:27)
[2019-09-27] MEDS: SENNOSIDES/DOCUSATE 8.6-50 MG 1 EACH TABLET PO SCH (11:27)
[2019-09-27] MEDS: DOCUSATE SODIUM 100 MG CAPSULE PO SCH ×2 (11:27→17:27)
[2019-09-27] MEDS: IBUPROFEN 800 MG TABLET PO SCH ×3 (11:28→21:43)
[2019-09-28] MEDS: IBUPROFEN 800 MG TABLET PO SCH ×3 (05:26→21:24)
[2019-09-28 06:46] LABS: HEMATOCRIT 28.5 % (36.0-47.0); HEMOGLOBIN 9.5 g/dL (12.0-15.5); MEAN CORPUSCULAR HEMOGLOBIN 26.5 pg (27.0-33.4); MEAN CORPUSCULAR HGB CONC 33.4 g/dL (32.0-36.0); MEAN CORPUSCULAR VOLUME 79 fl (80-97); PLATELET COUNT 170 10^3/uL (150-450); RED BLOOD COUNT 3.59 10^6/uL (3.72-5.28); RED CELL DISTRIBUTION WIDTH 17.1 % (11.5-14.0); WHITE BLOOD COUNT 11.2 10^3/uL (4.0-10.5)
[2019-09-28] MEDS: PRENATAL VITAMIN W DHA CAPSULE PO SCH (09:13)
[2019-09-28] MEDS: FERROUS SULFATE 325 MG TABLET PO SCH ×2 (09:13→17:18)
[2019-09-28] MEDS: SENNOSIDES/DOCUSATE 8.6-50 MG 1 EACH TABLET PO SCH (09:13)
[2019-09-28] MEDS: DOCUSATE SODIUM 100 MG CAPSULE PO SCH ×2 (09:13→17:18)
[2019-09-28] MEDS: FAMOTIDINE 20 MG TABLET PO SCH ×2 (09:13→21:23)
--- NOTE | 2019-09-28 10:27 | PDOC PROGRESS REPORT ---
Subjective-OB Progress Note for:: 09/28/19 Subjective: Doing well, no c/o, bottle feeding, would like to go home today Physical Exam (OB) Vital Signs: Temp Pulse Resp BP Pulse Ox 97.7 F 58 L 16 110/65 99 09/28/19 07:44 09/28/19 07:44 09/28/19 07:44 09/28/19 07:44 09/28/19 07:44 Intake & Output 09/27/19 09/28/19 09/29/19 06:59 06:59 06:59 Weight 148 kg - PIH/Pre-Eclampsia Headache: Absent Epigastric Pain: No Visual Changes: No - Lochia Lochia Amount: Scant < 10 ml Lochia Color: Rubra/Red - Abdomen Description: Soft Hernia Present: No Fundal Description: Firm, Midline Fundal Height: u/u - u/2 Objective-Diagnostic Laboratory: 09/28/19 06:24 09/28/19 06:24 WBC 11.2 H RBC 3.59 L Hgb 9.5 L Hct 28.5 L MCV 79 L MCH 26.5 L MCHC 33.4 RDW 17.1 H Plt Count 170 Assessment and Plan(PN) - Assessment and Plan (1) Anemia affecting in third trimester Is this a current diagnosis for this admission?: Yes (2) Chlamydia infection affecting Qualifiers: Qualified Code(s): O98.812 - Other maternal infectious and parasitic diseases complicating , second trimester; A74.9 - Chlamydial infection, unspecified Is this a current diagnosis for this admission?: Yes (3) GBS (group B Streptococcus carrier), +RV culture, currently Is this a current diagnosis for this admission?: Yes (4) Gonorrhea affecting Qualifiers: Qualified Code(s): O98.219 - Gonorrhea complicating , unspecified trimester Is this a current diagnosis for this admission?: Yes (5) History of depression Is this a current diagnosis for this admission?: Yes (6) Limited care Qualifiers: Is this a current diagnosis for this admission?: Yes (7) Placenta abruption, delivered, current hospitalization Is this a current diagnosis for this admission?: Yes - Time Spent with Patient Time with patient: Less than 15 minutes Medications reviewed and adjusted accordingly: Yes - Disposition Anticipated Discharge: Home Within: within 24 hours
[2019-09-29] MEDS: IBUPROFEN 800 MG TABLET PO SCH (05:36)
[2019-09-29 08:03] VITALS: BP 109/69
[2019-09-29] MEDS: PRENATAL VITAMIN W DHA CAPSULE PO SCH (09:58)
[2019-09-29] MEDS: DOCUSATE SODIUM 100 MG CAPSULE PO SCH (09:58)
[2019-09-29] MEDS: FERROUS SULFATE 325 MG TABLET PO SCH (09:58)
[2019-09-29] MEDS: FAMOTIDINE 20 MG TABLET PO SCH (09:58)
[2019-09-29] MEDS: SENNOSIDES/DOCUSATE 8.6-50 MG 1 EACH TABLET PO SCH (09:59)
--- NOTE | 2019-09-29 11:13 | PDOC PROGRESS REPORT ---
Subjective-OB Progress Note for:: 09/29/19 Subjective: no c/o, ready to go home, bottle feeding, voiding Physical Exam (OB) Vital Signs: Temp Pulse Resp BP Pulse Ox 97.6 F 57 L 16 109/69 97 09/29/19 10:43 09/29/19 10:43 09/29/19 10:43 09/29/19 07:20 09/29/19 10:43 Intake & Output 09/28/19 09/29/19 09/30/19 06:59 06:59 06:59 Intake Total 100 Output Total 2 Balance 98 - PIH/Pre-Eclampsia Headache: Absent Epigastric Pain: No Visual Changes: No - Lochia Lochia Amount: Small 10-25 ml Lochia Color: Rubra/Red - Abdomen Description: Soft, Round Hernia Present: No Fundal Description: Firm, Midline Fundal Height: u/u - u/2 Objective-Diagnostic Laboratory: 09/28/19 06:24 Assessment and Plan(PN) - Assessment and Plan (1) Anemia affecting in third trimester Is this a current diagnosis for this admission?: Yes (2) Chlamydia infection affecting Qualifiers: Qualified Code(s): O98.812 - Other maternal infectious and parasitic diseases complicating , second trimester; A74.9 - Chlamydial infection, unspecified Is this a current diagnosis for this admission?: Yes (3) GBS (group B Streptococcus carrier), +RV culture, currently Is this a current diagnosis for this admission?: Yes (4) Gonorrhea affecting Qualifiers: Is this a current diagnosis for this admission?: Yes (5) History of depression Is this a current diagnosis for this admission?: Yes (6) Limited care Qualifiers: Is this a current diagnosis for this admission?: Yes (7) Placenta abruption, delivered, current hospitalization Is this a current diagnosis for this admission?: Yes - Time Spent with Patient Time with patient: Less than 15 minutes Medications reviewed and adjusted accordingly: Yes - Disposition Anticipated Discharge: Home Within: within 24 hours
--- NOTE | 2019-09-29 11:18 | PDOC DISCHARGE SUMMARY ---
Impression - Admit/DC Date/PCP Admission Date/Primary Care Provider: 09/27/19 00:03 SEAN CASTAÑEDA MD Discharge Date: 09/29/19 - Discharge Diagnosis (1) Anemia affecting in third trimester Is this a current diagnosis for this admission?: Yes (2) Chlamydia infection affecting Is this a current diagnosis for this admission?: Yes (3) GBS (group B Streptococcus carrier), +RV culture, currently Is this a current diagnosis for this admission?: Yes (4) Gonorrhea affecting Is this a current diagnosis for this admission?: Yes (5) History of depression Is this a current diagnosis for this admission?: Yes (6) Limited care Is this a current diagnosis for this admission?: Yes (7) Placenta abruption, delivered, current hospitalization Is this a current diagnosis for this admission?: Yes - Additional Information Resuscitation Status: Full Code Discharge Diet: As Tolerated, Regular Discharge Activity: Activity As Tolerated, Pelvic Rest Referrals: SEAN CASTAÑEDA MD [Primary Care Provider] - (rtc 4 weeks) Home Medications: Ferrous Sulfate [Feosol 325 mg Tablet] 325 mg PO BID 09/15/19 Vit,Calc76/Iron/Folic [Prenatabs Rx Tablet] 1 tab PO DAILY 09/15/19 HPI Gestational Age: 39 Reason(s) for Admission: Induction of Labor, PROM Procedures: Ultrasound Intrapartum Procedure(s): Spontaneous Vaginal Delivery Hospital Course Hospital Course: routine Results Laboratory Results: WBC 11.2 10^3/uL (4.0-10.5) H 09/28/19 06:24 RBC 3.59 10^6/uL (3.72-5.28) L 09/28/19 06:24 Hgb 9.5 g/dL (12.0-15.5) L 09/28/19 06:24 Hct 28.5 % (36.0-47.0) L 09/28/19 06:24 MCV 79 fl (80-97) L 09/28/19 06:24 MCH 26.5 pg (27.0-33.4) L 09/28/19 06:24 MCHC 33.4 g/dL (32.0-36.0) 09/28/19 06:24 RDW 17.1 % (11.5-14.0) H 09/28/19 06:24 Plt Count 170 10^3/uL (150-450) 09/28/19 06:24 Lymph % (Auto) 28.9 % (13-45) 09/27/19 00:22 [place] % (Auto) 10.3 % (3-13) 09/27/19 00:22 Eos % (Auto) 0.9 % (0-6) 09/27/19 00:22 Baso % (Auto) 0.3 % (0-2) 09/27/19 00:22 Absolute Neuts (auto) 5.8 10^3/uL (1.7-8.2) 09/27/19 00:22 Absolute Lymphs (auto) 2.8 10^3/uL (0.5-4.7) 09/27/19 00:22 Absolute Monos (auto) 1.0 10^3/uL (0.1-1.4) 09/27/19 00:22 Absolute Eos (auto) 0.1 10^3/uL (0.0-0.6) 09/27/19 00:22 Absolute Basos (auto) 0.0 10^3/uL (0.0-0.2) 09/27/19 00:22 Seg Neutrophils % 59.6 % (42-78) 09/27/19 00:22 Urine Color YELLOW 09/26/19 23:58 Urine Appearance CLEAR 09/26/19 23:58 Urine pH 7.0 (5.0-9.0) 09/26/19 23:58 Ur Specific [place] 1.014 09/26/19 23:58 Urine Protein NEGATIVE mg/dL (NEGATIVE) 09/26/19 23:58 Urine Glucose (UA) NEGATIVE mg/dL (NEGATIVE) 09/26/19 23:58 Urine Ketones NEGATIVE mg/dL (NEGATIVE) 09/26/19 23:58 Urine Blood NEGATIVE (NEGATIVE) 09/26/19 23:58 Urine Nitrite NEGATIVE (NEGATIVE) 09/26/19 23:58 Urine Bilirubin NEGATIVE (NEGATIVE) 09/26/19 23:58 Urine Urobilinogen NEGATIVE mg/dL (<2.0) 09/26/19 23:58 Ur Leukocyte Esterase MODERATE (NEGATIVE) H 09/26/19 23:58 Urine Ascorbic Acid NEGATIVE (NEGATIVE) 09/26/19 23:58 Urine Opiates Screen NEGATIVE 09/26/19 23:58 Urine Methadone Screen NEGATIVE 09/26/19 23:58 Ur Barbiturates Screen NEGATIVE 09/26/19 23:58 Ur Phencyclidine Scrn NEGATIVE 09/26/19 23:58 Ur Amphetamines Screen NEGATIVE 09/26/19 23:58 U Benzodiazepines Scrn NEGATIVE 09/26/19 23:58 Urine Cocaine Screen NEGATIVE 09/26/19 23:58 U Marijuana (THC) Screen UNCONFIRMED POSITIVE 09/26/19 23:58 RPR NONREACTIVE (NONREACTIVE) 09/27/19 00:22 Blood Type O POSITIVE 09/27/19 00:22 Antibody Screen NEGATIVE 09/27/19 00:22 Plan Health Concerns: anemia, depression, TCH Plan of Treatment: discharge home, rev S&S to report, no TCH or smoking around baby Goals: no complications Time Spent: Less than 30 Minutes
== END 2019-09-29 13:42 | disposition home or self-care (01) | DRG 805 ==
LOC: LC 23:52 → LR 09-27 00:03 → 2S 09-27 08:41
PROVIDERS: ADMIT Obstetrics & Gynecology; ATTEND Obstetrics & Gynecology
PROC: 10E0XZZ Delivery of Products of Conception, External Approach (ICD-10-PCS; principal; 2019-09-27)
DX: O99.324 Drug use complicating childbirth (principal); O45.93 Premature separation of placenta, unspecified, third trimester; Z37.0 Single live birth; O98.82 Other maternal infectious and parasitic diseases complicating childbirth; O99.02 Anemia complicating childbirth; D64.9 Anemia, unspecified; F12.90 Cannabis use, unspecified, uncomplicated; O32.6XX0 Maternal care for compound presentation, not applicable or unspecified; Z3A.39 39 weeks gestation of pregnancy
CPT/HCPCS: 1967; 36415; 80307; 80349; 81005; 85025; 85027; 86592; 86850; 86900; 86901; 94760; G0480; J2590; J3010; J3490